=== PATIENT | female | born 1955 | race Caucasian/White ===

== ENCOUNTER → 2020-11-19 14:08 | Outpatient (CLI) | payer MEDICARE, OTHER, SELFPAY ==
[2020-11-17 11:22] VITALS: BMI 33.3
--- NOTE | 2020-11-19 14:11 | CT_ITS ---
STUDY: CT ABDOMEN AND PELVIS WITH CONTRAST REASON FOR EXAM: Female, 65 years old. Gross hematuria, history of glioblastoma with radiation, and carcinoid. RADIATION DOSAGE (If Supplied By Facility): CTDIvol = ( 18.92 ) mGy, DLP = ( 2019.77 ) mGycm TECHNIQUE: Transaxial images were obtained from the dome of the diaphragm to the symphysis pubis without oral contrast. Oral and amp; IV Redi-CAT and amp; 100mL Isovue-300 was administered. Sagittal and coronal images were reconstructed. Individualized dose optimization techniques were used for this CT. COMPARISON: None. FINDINGS: Lung bases show multiple suspicious noncalcified nodules in both lower lung benton that are concerning for metastasis. The visualized portions of the heart are within normal limits. There is decreased attenuation of the liver consistent with steatosis. Gallbladder is distended but there is no wall thickening, pericholecystic fluid or biliary dilatation. Normal spleen. Normal pancreas. Normal bilateral adrenal glands. No obstructive uropathy, there are bilateral parapelvic renal cysts. Normal visualized stomach. Normal small intestine. Retained stool noted in the colon. The appendix is visualized and appears normal. Appendix best seen on coronal recon images 65 through 75 Normal abdominal aorta. Normal inferior vena cava. No suspicious retroperitoneal abnormality is noted. There is a partially calcified soft tissue mass in the right mesentery measuring 2.7 x 2.7 cm. This could represent a desmoid tumor, could also be seen with carcinoid or reactive lymphadenopathy. Normal urinary bladder. Normal abdominal wall. There are diffuse degenerative changes of the visualized lumbar spine. CT/Abdomen/Pelvis WITH Contrast IMPRESSION: Multiple suspicious noncalcified nodules in both lower lung benton suggestive of metastasis. No obstructive uropathy, parapelvic renal cysts noted best on the delayed images. Fatty liver, no discrete lesion 2.7 cm partially calcified soft tissue mass in the right mesentery with some distortion of the mesenteric fat differentials described above. I suspect this may represent a carcinoid tumor. Retained stool in the colon No free intraperitoneal fluid, air, or suspicious adenopathy Degenerative bony changes Electronically Signed: Raffi Mendez MD at 14:55 EDT , Service support ,
== END ==
PROVIDERS: PCP Family Medicine; Referring Provider Internal Medicine Hematology & Oncology; Visit Provider Internal Medicine Hematology & Oncology
DX: R31.0 Gross hematuria (principal)
CPT/HCPCS: 74177; Q9967

== ENCOUNTER 2021-03-31 09:23 | Day surgery (SDC) | payer MEDICARE, OTHER, SELFPAY ==
[2021-03-31] VITALS (7 sets, daily range): BP systolic 113–132; BP diastolic 61–78; PULSE 56–73; RESP 16; TEMP 36–36.3; O2SAT 98–100; BMI 29.5
[2021-03-31] MEDS: Lactated Ringers 1,000 ML 100 ML IV (09:57)
--- NOTE | 2021-03-31 10:35 | HP.PCM_ITS ---
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 Is patient in pain?: No Allergies No Known Allergies Allergy (Verified 03/24/21 13:03) Medications Polyethylene Glycol 17 mg PO DAILY PRN 04/16/20 [History Confirmed 03/24/21] acetaminophen 325 mg PO Q4H PRN 04/16/20 [History Confirmed 03/24/21] amlodipine 10 mg PO DAILY 04/16/20 [History Confirmed 03/24/21] ergocalciferol (vitamin D2) 50,000 unit PO QWEEK 04/16/20 [History Confirmed 03/24/21] levetiracetam 500 mg PO BID 04/16/20 [History Confirmed 03/24/21] levothyroxine 250 mcg PO DAILY 04/16/20 [History Confirmed 03/24/21] lisinopril 20 mg PO DAILY 04/16/20 [History Confirmed 03/24/21] octreotide,microspheres 20 mg IM QMONTH 04/16/20 [History Confirmed 03/24/21] PFSH Medical History Basal cell carcinoma (BCC) Benign carcinoid tumor of colon Brain tumor Diverticular disease Dizzy spells Essential hypertension, benign excision anal papilla tag Hematuria Hypothyroidism Lung metastases Secondary lung cancer Thyroid cancer Thyroid cancer Thyroid cancer Surgical History H/O thyroidectomy History of resection of small bowel History of tonsillectomy History of uvulectomy Hx of excision of tumor of brain meninges S/P Mohs surgery for basal cell carcinoma S/P KEISHA-[id number] (total abdominal hysterectomy and bilateral salpingo-oophorectomy) Family History Father Lung cancer Sister Hypertension Aunt Breast cancer Grandmother Uterine cancer Social History housing: house Smoking Status: Never smoker second hand exposure: No details: socially substance use type: does not use seatbelt use: always do you feel safe at home: Yes HPI HPI HPI: CLINTON LONGO, is a 65 F who presents to the office today for port placement for 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 Patient also seen Dr. Lynn for carcinoid of the small bowel. Patient is having issues with IV access and would like a port placed. Patient's last treatment is scheduled for 04/09. ROS General General: Yes weight change and fatigue; No appetite, colon cancer, breast cancer or weakness HEENT HEENT: No difficulty swallowing, eye injury, eye surgery, swollen glands or hoarseness Endo Endocrine: Yes thyroid cancer; No thyroid disease, diabetes mellitus, Hair loss, heat intolerance or cold intolerance Skin Skin: No rash or changing moles Breast Breast: No left breast lump, right breast lump, nipple discharge, breast pain, abnormal mammogram, abnormal US or breast enlargement Musc Musculoskeletal: No back problems, arthritis, rheumatoid arthritis, gout or joint pain Cardio Cardiovascular: No murmur, pacemaker, heart disease, atrial fibrillation, high blood pressure, heart attack, heart stent, palpitations, shortness of breat with exertion or chest pain Psych Psychiatric: No depression, anxiety or hearing voices Resp Respiratory: No shortness of breath, No sleep apnea, No cough, No COPD, No asthma, No emphysema and No wheezing Gastro Gastrointestinal: No abdominal pain, No nausea or vomiting, No diarrhea, No constipation, No blood in stool, No acid reflux, No hemorrhoids, No ulcers, No gallbladder problem and No black,tarry stools Juan Hematologic: No blood thinners, No blood disorders, No bleeding, No anemia and No blood clots Neuro Neurologic: No system reviewed and no additional complaints, except as documented, No as per HPI, No abnormal gait, No abnormal hearing, No abnormal movements, No abnormal speech, No behavioral changes, No burning sensations, No confusion, No convulsions, No disequilibrium, No dizziness, No localized weakness, No frequent falls, No headache(s), No lack of coordination, No loss of vision, No memory loss, No numbness, No other visual disturbances, No radicular pain, No restless legs, No sensory deficit, No syncope, No tingling, No tremor(s), No weakness and No other Exam Const General: cooperative, healthy appearing, comfortable and no acute distress Neck Other: Previous cervical incision status post thyroidectomy, mobile subcutaneous nodule under incision about 1 cm in size otherwise neck supple Chest Other: Upper chest normal on inspection and palpation Resp Effort & Inspection: normal respiratory effort Cardio Rate: regular rate GI Inspection: non-distended Palpation: soft, no guarding and nontender Skin General: no rashes or lesions noted Neuro General: patient oriented x3 Psych Affect: normal affect COVID (Procedure Consent) Procedure Criteria Procedure Criteria: Yes Elective The surgeon/proceduralist and patient have discussed in detail the risk of exposure to and/or potential harm posed by the COVID-19 virus with having a surgery/procedure at this time versus the risk of delaying the surgery/procedure. It is not possible to know either the risk of delaying the surgery or procedure or chance of getting an infection with perfect accuracy, but a joint decision was made between the patient and the surgeon/proceduralist to proceed at this time with the scheduled surgery/procedure as indicated on the consent form. Assessment and Plan Assessment and Plan (1) Encounter for insertion of venous access port: Status: Acute (2) Grade 4 astrocytoma: Status: Chronic (3) Carcinoid tumor, small intestine, malignant: Status: Chronic Qualifiers: Carcinoid tumor small intestine location: unspecified location Qualified Code(s): C7A.019 - Malignant carcinoid tumor of the small intestine, unspecified portion Plan - Dr. Shanique Farris MD: I have discussed above with the patient- Port-a-Cath placement. Right possible left Patient has been counseled as to the risks/benefits of the procedure. I have explained the risks of the surgery, including but not limited to: infection, bleeding, injury to any blood vessels/nerves, injury to lungs (such as pneumothorax or hemothorax and need for chest tube), not having any access, nonfunctioning of port due to thrombosis, infection of port, etc. the patient understands and agrees to proceed. I have answered all the patient's questions to the patient?s satisfaction and the patient has no further questions. Shanique Farris M.D. Pager: [phone] [facility] [address] [place] [address], [facility], [address] [place] [address] Office: [phone] Coding Level of Care Code Off vis,new,level 3 Diagnoses Encounter for insertion of venous access port Z45.2 Grade 4 astrocytoma C71.9 Carcinoid tumor, small intestine, malignant C7A.019 Carcinoid tumor small intestine location: unspecified location 03/24/21 1323<Electronically signed by Shanique Farris MD>Date Shanique Farris MD
[2021-03-31] MEDS: Cefazolin 2 GM in 0.9% Normal Saline 100 ML IV (11:39)
--- NOTE | 2021-03-31 12:17 | PCM.OPRPT ---
Report of Operation Date of Procedure: 03/31/21 Pre-Operative Diagnosis: Z 45.2, grade 4 astrocytoma Post-Operative Diagnosis: Same Surgery/Procedure Performed:: 1. Placement of right IJ Port-A-Cath 2. Use of fluoroscopy 3. Use of ultrasound. Surgeon: Shanique Farris Type of Anesthesia: MAC/Supplemental Anesthesiologist: Juanito Jackson Special Medications: Ancef 2 g IV x1 Estimated Blood Loss (mL): <10 cc Description of Procedure: After informed consent was given, the patient was brought to the operating room and placed in the supine position. Appropriate time out protocol was followed. Patient was then given IV conscious sedation for anesthesia. The patient's right upper chest and neck were then prepped with a surgical skin preparation and sterile surgical drapes were placed. After proper landmarks were ascertained, the skin at the upper right chest area was then infiltrated with 1:1 mixture of 1% lidocaine with epinephrine and 0.5% marcaine. A needle trocar was then inserted into the right internal jugular vein with ultrasound guidance-multiple vessels were viewed with u/s and the right IJ was chosen-- and there was good aspiration of venous blood. A wire was then threaded into the needle trocar and this was visualized under fluoroscopy to ensure that the wire was in the superior vena cava. Once this was done, then the needle trocar was removed. A small skin deborah was made with an 11 blade knife at the wire entrance site. The dilator with the introducer sheath attached was then placed over the wire into the right internal jugular vein via the Seldinger technique and this was visualized under fluoroscopy. The dilator and sheath were in proper position as visualized by fluoroscopy. A subcutaneous pocket was then created caudad to the catheter insertion site. A transverse skin incision was made after the skin and subcutaneous tissues were infiltrated with local anesthetic. Blunt dissection was then used to create a space large enough for placement of the subcutaneous port. The catheter was then tunneled into the subcutaneous pocket. The wire and dilator were then removed. The catheter was then threaded into the introducer sheath and was positioned with its tip at the junction of the superior vena cava and the right atrium as visualized under fluoroscopy. The excess catheter was transected. The catheter was then attached to the subcutaneous port using manufacturers guidelines. The catheter was flushed with a heparin saline mixture prior to placement. Hemostasis was carefully controlled with electrocautery. The port was sutured to the subcutaneous fascia using 2-0 Vicryl suture at two sites. The port was then placed in the subcutaneous pocket. The incision were reapproximated with interrupted subdermal 3-0 vicryl sutures. The skin was reapproximated with 3-0 nylon suture in a interrupted fashion. Steristrips were used for reinforcement of the skin closure at IJ insertion site and a sterile opsite dressings were applied. The patient tolerated the procedure well. Implants Used: [employer] PowerPort isp M.R.I. 6Fr Lot [id number] Grafts/Implants Used: [employer] PowerPort isp M.R.I. 6Fr Lot [id number] Complications none
--- NOTE | 2021-03-31 12:19 | EX.PCM.DISCH ---
Discharge Instructions Procedure Port-A-Cath Diet Discharge Diet: Light diet - advance as tolerated Activity May shower in (days): 5 (Keep port site clean and dry x5 days. Neck incision okay to get wet after 1 day. Okay to lower shower and upper sponge bath. OR okay to taper off port site with a Ziploc bag to shower) Lifting Restrictions: No lifting > 15 pounds for 3 days with the arm on the side of the port Dressing / Incision Call your doctor if your incision/area has: Continuous Slow Oozing, Sudden Increased Bleeding, Increased Pain/ Swelling, Increased Redness, Foul Smelling Discharge and Swelling at the incision site Call your doctor if you observe: Fever of 101 or Higher Change Dressing in: 2 days Follow Up Care Please Follow Up With: Shanique Farris MD When: In 10 days for permanent suture removal?call office for appointment Test Results: Test results from this visit will be discussed in further detail at your follow-up appointment, if applicable. Discharge Plan Admission Attending Provider: Shanique Farris Primary Care Provider: Christine Concepcion Discharge Orders/Prescriptions Prescriptions: New oxycodone-acetaminophen [Endocet] 5-325 mg tablet 1 tab PO Q6H PRN (Reason: pain) 3 Days Qty: 5 RF: 0 Continued acetaminophen 325 MG tablet 325 mg PO Q4H PRN (Reason: Pain Score 1-3) RF: 0 amlodipine 10 MG tablet 10 mg PO DAILY RF: 0 ergocalciferol (vitamin D2) 50,000 UNIT capsule 50,000 unit PO QWEEK RF: 0 levetiracetam 500 MG tablet 500 mg PO BID RF: 0 levothyroxine 125 MCG tablet 250 mcg PO MOTUWETHFR RF: 0 lisinopril 10 MG tablet 20 mg PO DAILY RF: 0 octreotide,microspheres 20 MG kit 20 mg IM QMONTH RF: 0 Polyethylene Glycol 17 mg PO DAILY PRN (Reason: Constipation) RF: 0 levothyroxine 125 mcg Capsule 125 mcg PO SUSA RF: 0 Referrals / Follow Up: Christine Concepcion MD [Primary Care Provider] - Disposition Disposition (needs filled in before D/C Order can be placed): Home, Self Care
--- NOTE | 2021-03-31 12:30 | RAD_ITS ---
STUDY: X-RAY CHEST REASON FOR EXAM: Female, 65 years old. port -- pacu TECHNIQUE: Single AP portable view of the chest. COMPARISON: 10/12/2011 FINDINGS: Interval placement right internal jugular chest port with tip in the catheter overlying the junction of the right atrium and superior vena cava. No pneumothorax. The lungs are clear and expanded. There is no demonstrated pleural abnormality. Normal size heart. Normal mediastinum and debbie. Normal visualized pulmonary arteries. Normal visualized aortic arch and descending thoracic aorta. Normal visualized thoracic spine. Normal visualized ribs, clavicles, and shoulders. There is no demonstrated abnormality of the visualized soft tissue structures of the upper abdomen. RAD/CXR for Line Placement IMPRESSION: 1. Interval placement right internal jugular chest port with tip of the catheter overlying the junction of the right atrium and superior vena cava with no pneumothorax. 2. No active pulmonary disease. Electronically Signed: Richmond Fisher MD at 12:45 EDT Tel , Service support ,
== END 2021-03-31 13:48 | disposition home or self-care (01) ==
LOC: SDC 09:27 → AC 09:27
PROVIDERS: PCP Family Medicine; Referring Provider Surgery; Visit Provider Surgery
PROC: (CPT 36561; principal; 2021-03-31 11:15)
DX: C71.9 Malignant neoplasm of brain, unspecified (principal); C7A.019 Malignant carcinoid tumor of the small intestine, unspecified portion; Z45.2 Encounter for adjustment and management of vascular access device; I10 Essential (primary) hypertension; E03.9 Hypothyroidism, unspecified; Z79.899 Other long term (current) drug therapy
CPT/HCPCS: 00532; 36561; 71045; 77001; J7120; J2405

== ENCOUNTER 2021-09-25 08:09 | Outpatient (CLI) | payer MEDICARE, OTHER, SELFPAY ==
--- NOTE | 2021-09-25 08:11 | CT_ITS ---
STUDY: CT BRAIN WITH AND WITHOUT CONTRAST REASON FOR EXAM: Female, 66 years old. New headache, N/V in setting of known astrocytoma RADIATION DOSAGE (If Supplied By Facility): CTDIvol = ( 44.99 ) mGy, DLP = ( 1479.73 ) mGycm TECHNIQUE: Transaxial CT imaging of the brain was performed pre and post contrast administration. The examination was performed with intravenous administration of IV 50mL Isovue-370. Individualized dose optimization techniques were used for this CT. COMPARISON: None. FINDINGS: Normal soft tissue structures. The patient is status post left frontal craniotomy. Normal size ventricles and extra-axial spaces for the patient''s age. Normal white matter tracts of the cerebral hemispheres. There is a 1.1 cm x 0.5 cm densely calcified abnormality in the left frontal lobe. Adjacent to this, there is a 1.1 cm x 1.1 cm cystic nodule. The patient is known to have a history of astrocytoma. Normal basal ganglia and thalami. Normal brainstem. Normal cerebellum. There is no intracranial hemorrhage. There are no findings of an acute ischemic infarction. Normal visualized paranasal sinuses. CT/Brain/Head W/WO Contrast IMPRESSION: Focal dense calcification with cystic changes in the left frontal lobe in keeping with the patient''s history of astrocytoma. The patient is status post left frontal craniotomy. No enhancement is seen. Electronically Signed: Migel You MD at 9:13 EDT ,
[2021-09-25] MEDS: 0.9 % NaCl (Sterile) Posiflush 10 mL IV (08:27)
== END 2021-09-25 23:59 | disposition home or self-care (01) ==
LOC: CT 08:10
PROVIDERS: PCP Family Medicine; Referring Provider Nurse Practitioner Family; Visit Provider Nurse Practitioner Family
DX: C71.9 Malignant neoplasm of brain, unspecified (principal); R51.9 Headache, unspecified; R11.0 Nausea
CPT/HCPCS: 70470; Q9967; A4216

== ENCOUNTER 2023-02-17 09:01 | Observation (INO) | payer MEDICARE, OTHER, SELFPAY ==
[2023-02-17 09:02] VITALS: BP 105/69; PULSE 99; RESP 14; TEMP 36.4; O2SAT 100
--- NOTE | 2023-02-17 09:26 | MRI_ITS ---
STUDY: MRI BRAIN WITH AND WITHOUT CONTRAST REASON FOR EXAM: Female, 67 years old. aphasia, hx astrocytoma TECHNIQUE: Standardized multiplanar fat and water weighted pulse sequences were obtained. IV CLARISCAN 15 CC was administered for the contrast portion of the examination. COMPARISON: Head CT dated September 25, 2021. FINDINGS: Prior surgical resection with overlying) craniotomy defects in the superior aspect of the left frontal lobe, starting from the periventricular region and extending superiorly into the packer radiata. There is a peripherally enhancing intermediate signal nodule in the left periventricular white matter at the level of packer radiata measuring 1.44 x 0.78 cm, either representing residual tumor or recurrent neoplasm, see images 82 through 91/136 series 2 on the postcontrast images. No additional primary or metastatic lesions are seen in the bilateral cerebral hemispheres or in the posterior fossa there is no demonstrated meningeal or dural thickening or abnormal enhancement to suggest dural carcinomatosis. Post resective gliosis and volume loss is also present in superior aspect of the left frontal lobe from prior surgical intervention. An old lacunar infarct is present at the junction of the right caudate nucleus and lentiform nucleus superiorly. There is mild cerebral atrophy with widening of the extra-axial spaces and ventricular dilatation. There are a limited number of small white matter hyperintensities, distributed throughout the deep white matter tracts of the cerebral hemispheres, consistent with mild chronic white matter ischemic changes. There is no evidence for recent intracranial ischemia or other cause of cytotoxic edema on diffusion weighted imaging (DWI). Normal bilateral basal ganglia. Normal thalami. There is no extra-axial fluid accumulation. Normal flow voids within the major intracranial circulation suggesting patency by spin echo criteria. Normal venous enhancement. Normal sella turcica, pituitary gland, infundibular stalk, optic chiasm and hypothalamus. Normal tectal plate and pineal gland. Normal midbrain, rosemarie and medulla. Normal cerebellum. Normal basal cisterns. Normal bilateral temporal bones. Normal bilateral internal auditory canals. No demonstrated orbital abnormality, within the constraints of a routine brain study. Normal visualized paranasal sinuses. Normal visualized soft tissue structures. Normal visualized upper cervical spine. MRI/Brain W/WO Contrast IMPRESSION: 1. There is a peripherally enhancing intermediate signal nodule in the left periventricular white matter at the level of packer radiata measuring 1.44 x 0.78 cm, either representing residual tumor or recurrent neoplasm, see images 82 through 91/136 series 2 on the postcontrast images. 2. No additional primary or metastatic lesions are seen in the bilateral cerebral hemispheres or in the posterior fossa there is no demonstrated meningeal or dural thickening or abnormal enhancement to suggest dural carcinomatosis. Post resective gliosis and volume loss is also present in superior aspect of the left frontal lobe from prior surgical intervention. Electronically Signed: Moses Marshall MD at 15:09 EDT ,
--- NOTE | 2023-02-17 09:27 | EKG12_ITS ---
Test Reason : ALT LOC Blood Pressure : / mmHG Vent. Rate : 085 BPM Atrial Rate : 085 BPM P-R Int : 124 ms QRS Dur : 086 ms QT Int : 364 ms P-R-T Axes : 005 -12 011 degrees QTc Int : 433 ms Normal sinus rhythm Minimal voltage criteria for LVH, may be normal variant ( R in aVL ) Borderline ECG Confirmed by FANTASMA RAWLS ([id number]), map editor MAK TALAMANTES ([id number]) on 02/22/2023 8:37:10 AM Referred By: Confirmed By:FANTASMA RAWLS
--- NOTE | 2023-02-17 09:29 | EX.ED.DYSGE1 ---
HPI History of Present Illness Chief Complaint: Alt LOC Informant: patient, family and PCP (Rad-Onc) Narrative Narrative: Patient has been altered for the past 2 or 3 days, the main issue is speaking things that do not make any sense and contacts, but also having some periods of lethargy and decreased responsiveness. Patient denies any physical symptoms such as headache, chest pain, shortness of breath. 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 Patient lives at home alone, she is chronically nonambulatory, and gets around in her wheelchair. [facility] Medical History Autism Basal cell carcinoma (BCC) Benign carcinoid tumor of colon Brain tumor Cancer Diverticular disease Dizzy spells Encounter for chemotherapy management Essential hypertension, benign excision anal papilla tag Fatigue Headache Hematuria History of stress test Hoarseness Hypothyroidism Lung metastases Nausea Non-smoker Postoperative primary hypothyroidism Secondary lung cancer Seizures Thyroid cancer Thyroid cancer Thyroid cancer Wears glasses Home Medications amlodipine 10 mg tablet 10 mg PO DAILY 04/16/20 [History Last Taken 03/31/21] ergocalciferol (vitamin D2) 1,250 mcg (50,000 unit) capsule 50,000 unit PO QWEEK 04/16/20 [History Last Taken Unknown] levetiracetam 500 mg tablet 500 mg PO BID 04/16/20 [History Last Taken 03/31/21] octreotide,microspheres 20 mg intramuscular susp, extended release 20 mg IM QMONTH carcinoid tumor 04/16/20 [History Last Taken Unknown] lisinopril 40 mg tablet 40 mg PO DAILY 08/13/21 [History Last Taken Unknown] ondansetron 4 mg disintegrating tablet 4 mg PO Q8H PRN nausea and vomiting #30 tabs 09/24/21 [Rx Last Taken Unknown] levothyroxine 125 mcg tablet 125 mcg PO DAILY #90 tabs 11/05/21 [Rx Last Taken Unknown] aspirin 81 mg tablet,delayed release (Adult Low Dose Aspirin) 81 mg PO DAILY 02/25/22 [History Last Taken Unknown] atorvastatin 20 mg tablet (Lipitor) 20 mg PO DAILY 02/25/22 [History Last Taken Unknown] mirtazapine 15 mg tablet (Remeron) 15 mg PO QHS 06/17/22 [History Last Taken Unknown] morphine 15 mg tablet,extended release 15 mg PO Q12H 02/17/23 [History Last Taken Unknown] oxycodone 5 mg tablet 5 mg PO Q6H PRN pain 02/17/23 [History Last Taken Unknown] polyethylene glycol 3350 17 gram/dose oral powder 17 g PO DAILY PRN constipation 02/17/23 [History Last Taken Unknown] Allergy/AdvReac Type Severity Reaction Status Date / Time No Known Allergies Allergy Verified 02/17/23 09:07 Family History Father Lung cancer Sister Hypertension Aunt Breast cancer Grandmother Uterine cancer Surgical History H/O cataract removal with insertion of prosthetic lens H/O thyroidectomy History of resection of small bowel History of surgery on lower extremity History of tonsillectomy History of uvulectomy Hx of excision of tumor of brain meninges S/P Mohs surgery for basal cell carcinoma S/P [id number] (total abdominal hysterectomy and bilateral salpingo-oophorectomy) Social History housing: house Smoking Status: Never smoker second hand exposure: No details: socially substance use type: does not use seatbelt use: always do you feel safe at home: Yes ROS ROS ED Review of Systems ROS Unobtainable: due to mental status Constitutional Constitutional ED: Reports anorexia and weakness; Denies chills or fever(s) Eyes Eyes: Denies change in vision or diplopia ENT ENT ED: Denies sore throat Cardiovascular Cardiovascular: Denies chest pain or palpitations Respiratory/Chest Respiratory/Chest: Denies cough or dyspnea Gastrointestinal Gastrointestinal: Denies abdominal pain, diarrhea, nausea or vomiting Musculoskeletal Musculoskeletal: Denies back pain or neck pain Neurologic Neurologic: Reports as per HPI and abnormal speech; Denies headache(s), paresthesias or weakness EXAM Physical Exam Const Vital Signs: 02/17/23 09:02 02/17/23 10:56 02/17/23 13:45 Temperature 97.6 F L Temperature Source Temporal Pulse Rate 99 85 75 Respiratory Rate 14 14 18 Blood Pressure 105/69 125/65 H 102/60 Blood Pressure Mean 81 85 74 Pulse Ox 100 97 97 Oxygen Delivery Method Room Air Room Air Room Air Positive well nourished and well developed General Appearance ED: well developed and NAD HEENT Reports moist mucous membranes normocephalic and atraumatic Eyes PERRL and EOMs intact bilaterally Neck full ROM and supple Resp normal respiratory effort and clear to auscultation bilaterally Cardio regular rate and regular rhythm Rate: Negative for tachycardic GI non-tender and non-distended Auscultation: normoactive bowel sounds Palpation: soft Back/Spine no CVA tenderness General Back: other FROM Extremity normal to inspection General Extremety ED: Negative for edema, pulses abnormal or tenderness General Extremity: Negative for edema or pulses abnormal Neuro oriented x3, CN's II-XII intact bilaterally and no sensory deficits noted Neuro Narrative: Trouble following commands especially with moving eyes, but she can move her extremities to command without difficulty. NIHSS is 4 for abnormal month, age, speech. Sensorium / Orientation: awake and alert Motor Exam: strength 5/5 throughout Psych Psych Narrative: Flat affect Skin no rashes or lesions noted and no wounds NIHSS NIHSS Initial: 1a Level of Consciousness: 0 1b LOC Questions (Score 2 if aphasic/stupor): 2 1c LOC Commands (Only score 1st attempt): 0 2 Best Gaze (If aphasic, use reflexive mvmts.): 0 3 Visual: 0 4 Facial Palsy: 0 5 Motor Arm Right (UN = amputation/fusion): 0 5 Motor Arm Left: 0 6 Motor Leg Right: 0 6 Motor Leg Left: 0 7 Limb ataxia (Only + if out of proportion): 0 8 Sensory (Aphasia/stupor=0 or 1, coma=2): 0 9 Best Language: 2 10 Dysarthria (mute, coma=2, intubated=UN): 0 11 Extinction and Inattention (only scored if +): 0 Total Score: 4 MDM MDM MDM Narrative Medical decision making narrative: Labs show SULAIMAN and prerenal azotemia, she was given IV fluids here while we awaited MRI of the brain to be obtained and results, which were somewhat delayed due to needing to obtain other images series in order to compare for accurate interpretation. This was attempted, but no prior MRI of the brain was available in our windows server support technician, just a prior CT which I did a comparison with, which certainly is limited. I reviewed the images and the report of the MRI which I agree with. I discussed with her oncologist Dr. Spencer, who request that we try to get the last set of MR brain images from [facility] to be sent to our windows server support technician so that the radiologist can then make a direct comparison and comment on this. There does not appear to be any acute edema, mass effect, or other lesions now, and indeed the mass that is seen on the left frontal periventricular white matter is in similar placement to that on the CT last year. MRI already submitted for the images to be transmitted from [facility] and we are waiting for an addendum/comparison. I did discuss at length with the patient and her cousin in law who is here representing the medical POA who is not available right now, and they both confirm that the patient does not want to undergo any other procedures that would involve neurosurgery, even if indicated. Also, between her and her other family member, they both have ill spouses and her not able to be with the patient if she were to be at home so that somebody is there every day. They are concerned about her safety since she is confused, and for that reason I will discuss with hospitalist for admission. In asking the patient about her hydration status, she states it does make sense that she could be dehydrated since she has had very poor fluid intake lately. Lab Data Attestation: I reviewed the patient's lab results. Labs: Laboratory Results - last 24 hr 02/17/23 02/17/23 02/17/23 09:47 10:15 10:15 WBC Cancelled Corrected WBC Cancelled RBC Cancelled Hgb Cancelled Hct Cancelled MCV Cancelled MCH Cancelled MCHC Cancelled RDW Std Deviation Cancelled RDW Coeff of Tre Cancelled Plt Count Cancelled MPV Cancelled Immature Gran % (Auto) Cancelled Neut % (Auto) Cancelled Lymph % (Auto) Cancelled [place] % (Auto) Cancelled Eos % (Auto) Cancelled Baso % (Auto) Cancelled Absolute Neuts (auto) Cancelled Absolute Lymphs (auto) Cancelled Total Counted Cancelled Neutrophils % (Manual) Cancelled Band Neutrophils % Cancelled Lymphocytes % (Manual) Cancelled Monocytes % (Manual) Cancelled Eosinophils % (Manual) Cancelled Basophils % (Manual) Cancelled Metamyelocytes % Cancelled Myelocytes % Cancelled Promyelocytes % Cancelled Blast Cells % Cancelled Plasma Cell % (Manual) Cancelled Other Cells % Cancelled Nucleated RBC % Cancelled Nucleated RBCs/100 WBC Cancelled Differential Comment Cancelled Diff Path Review Cancelled Hypersegmented Neuts Cancelled Atypical Lymphocytes Cancelled Reactive Lymphocytes Cancelled Smudge Cells Cancelled Toxic Granulation Cancelled Toxic Vacuolation Cancelled Dohle Bodies Cancelled Evelyn Rods Cancelled Platelet Estimate Cancelled Plt Morphology Comment Cancelled RBC Morphology Cancelled Cancelled Polychromasia Cancelled Hypochromasia Cancelled Poikilocytosis Cancelled Basophilic Stippling Cancelled Anisocytosis Cancelled Microcytosis Cancelled Macrocytosis Cancelled Spherocytes Cancelled Sickle Cells Cancelled Target Cells Cancelled Tear Drop Cells Cancelled Ovalocytes Cancelled Stomatocytes Cancelled [place] Bodies Cancelled [place] Cells Cancelled Bite Cells Cancelled Crenated Cell Cancelled Acanthocytes (Spur) Cancelled Rouleaux Cancelled Schistocytes Cancelled Sodium 139 Potassium 4.1 Chloride 110 H Carbon Dioxide 24.0 Anion Gap 5 BUN 57 H Creatinine 2.18 H Estim Creat Clear Calc 21.03 Est GFR (MDRD) Af Amer 29 L Est GFR (MDRD) Non-Af 24 L BUN/Creatinine Ratio 26.1 H Glucose 118 H Calcium 9.5 Total Bilirubin 0.60 AST 33 ALT 17 Alkaline Phosphatase 97 Troponin I High Sens 9 Total Protein 6.9 Albumin 3.4 Globulin 3.5 Albumin/Globulin Ratio 1.0 Urine Color YELLOW Urine Clarity Sl. Cloudy Urine pH 5.0 Ur Specific [place] 1.025 Urine Protein 15 H Urine Glucose (UA) Normal Urine Ketones Negative Urine Occult Blood 10 H Urine Nitrite Negative Urine Bilirubin 3 H Urine Urobilinogen 1 H Ur Leukocyte Esterase 100 H Urine RBC 0-5 SEEN Urine WBC 0-5 SEEN Ur Squamous Epith Cells 5-10 SEEN Urine Bacteria RARE Urine Mucus RARE 02/17/23 02/17/23 02/17/23 10:50 10:50 12:00 WBC Cancelled 7.3 Corrected WBC Cancelled RBC Cancelled 3.68 L Hgb Cancelled 10.3 L Hct Cancelled 34.0 L MCV Cancelled 92.4 MCH Cancelled 28.0 MCHC Cancelled 30.3 L RDW Std Deviation Cancelled 50.1 H RDW Coeff of Tre Cancelled 15.0 H Plt Count Cancelled 133 L MPV Cancelled 13.8 H Immature Gran % (Auto) Cancelled 0.400 Neut % (Auto) Cancelled 75.0 H Lymph % (Auto) Cancelled 14.9 L [place] % (Auto) Cancelled 9.3 Eos % (Auto) Cancelled 0.0 Baso % (Auto) Cancelled 0.4 Absolute Neuts (auto) Cancelled 5.5 Absolute Lymphs (auto) Cancelled 1.09 Total Counted Cancelled Neutrophils % (Manual) Cancelled Band Neutrophils % Cancelled Lymphocytes % (Manual) Cancelled Monocytes % (Manual) Cancelled Eosinophils % (Manual) Cancelled Basophils % (Manual) Cancelled Metamyelocytes % Cancelled Myelocytes % Cancelled Promyelocytes % Cancelled Blast Cells % Cancelled Plasma Cell % (Manual) Cancelled Other Cells % Cancelled Nucleated RBC % Cancelled 0 Nucleated RBCs/100 WBC Cancelled Differential Comment Cancelled Diff Path Review Cancelled Hypersegmented Neuts Cancelled Atypical Lymphocytes Cancelled Reactive Lymphocytes Cancelled Smudge Cells Cancelled Toxic Granulation Cancelled Toxic Vacuolation Cancelled Dohle Bodies Cancelled Evelyn Rods Cancelled Platelet Estimate Cancelled Plt Morphology Comment Cancelled RBC Morphology Cancelled Cancelled Polychromasia Cancelled Hypochromasia Cancelled Poikilocytosis Cancelled Basophilic Stippling Cancelled Anisocytosis Cancelled Microcytosis Cancelled Macrocytosis Cancelled Spherocytes Cancelled Sickle Cells Cancelled Target Cells Cancelled Tear Drop Cells Cancelled Ovalocytes Cancelled Stomatocytes Cancelled [place] Bodies Cancelled [place] Cells Cancelled Bite Cells Cancelled Crenated Cell Cancelled Acanthocytes (Spur) Cancelled Rouleaux Cancelled Schistocytes Cancelled Sodium Potassium Chloride Carbon Dioxide Anion Gap BUN Creatinine Estim Creat Clear Calc Est GFR (MDRD) Af Amer Est GFR (MDRD) Non-Af BUN/Creatinine Ratio Glucose Calcium Total Bilirubin AST ALT Alkaline Phosphatase Troponin I High Sens Total Protein Albumin Globulin Albumin/Globulin Ratio Urine Color Urine Clarity Urine pH Ur Specific [place] Urine Protein Urine Glucose (UA) Urine Ketones Urine Occult Blood Urine Nitrite Urine Bilirubin Urine Urobilinogen Ur Leukocyte Esterase Urine RBC Urine WBC Ur Squamous Epith Cells Urine Bacteria Urine Mucus Radiography Diagnostic Testing: Clinical Impression(s) from Imaging Studies Brain MRI 02/17/23 09:26 IMPRESSION: 1. There is a peripherally enhancing intermediate signal nodule in the left periventricular white matter at the level of packer radiata measuring 1.44 x 0.78 cm, either representing residual tumor or recurrent neoplasm, see images 82 through 91/136 series 2 on the postcontrast images. 2. No additional primary or metastatic lesions are seen in the bilateral cerebral hemispheres or in the posterior fossa there is no demonstrated meningeal or dural thickening or abnormal enhancement to suggest dural carcinomatosis. Post resective gliosis and volume loss is also present in superior aspect of the left frontal lobe from prior surgical intervention. Electronically Signed: Moses Marshall MD at 15:09 EDT , Chest X-Ray 02/17/23 11:05 IMPRESSION: Degenerative changes, as described above. No demonstrated acute cardiopulmonary process. Electronically Signed: Moses Marshall MD at 11:48 EDT , Rhythm Strip Rhythm Strip: Sinus Rhythm Rate: 85 Ectopy: None EKG Initial EKG: Attestation: I personally reviewed and interpreted this EKG as follows: Interpretation: Sinus Rhythm and No Acute Injury Pattern Comments: nml EKG Management Discussion w/another healthcare provider: Hospitalist and [facility] Clerk (Dr. Spencer) Discharge Plan Dx/Rx/DC Orders Clinical Impression: Acute encephalopathy, Grade 4 astrocytoma, SULAIMAN (acute kidney injury), Acute dehydration Disposition Disposition: Acute Care Hospital [facility] Stroke Documentation Questions Stroke Team Activated: No (due to timing) Was Patient considered for Endovascular Intervention?: No-CTA not indicated IV Thrombolytic Administered: No
--- NOTE | 2023-02-17 09:32 | NURSING ---
NO OLD EKGS
[2023-02-17 10:04] LABS: Color, Urine YELLOW (Yellow); Glucose, Dipstick Normal (Normal); Ketone-Dipstick Negative (Negative); Leukocyte Esterase-Dipstick 100 /ul (Negative); Nitrite-Dipstick Negative (Negative); Occult Blood-Urine 10 /ul (Negative); Protein-Dipstick 15 mg/dl (Negative); Specific Gravity, Urine 1.025 (1.002-1.030); Urine Bilirubin Dipstick 3 mg/dL (Negative); Urine Clarity Sl. Cloudy (Clear); Urine Urobilinogen 1 mg/dl (Normal)
[2023-02-17 10:14] VITALS: BMI 32.4
[2023-02-17] MEDS: 0.9% Normal Saline 1,000 ML 150 ML IV ×2 (10:21→17:00)
[2023-02-17] MEDS: Morphine 4 MG/ML Syringe IV ×2 (10:32→16:31)
[2023-02-17] MEDS: Ondansetron 4 MG/2 ML Vial IV (10:32)
[2023-02-17 10:42] LABS: AST(SGOT) 33 U/L (15-37); Alanine Aminotransfer ALT/SGPT 17 U/L (13-56); Albumin, Serum 3.4 g/dL (3.2-5.0); Alkaline Phosphatase 97 U/L (45-117); Anion Gap 5 (5-15); BUN 57 mg/dL (7-18); BUN/Creat Ratio 26.1 RATIO (10-20); Calcium,Total 9.5 mg/dL (8.5-10.1); Chloride 110 mmol/L (98-107); Creatinine, Serum 2.18 mg/dL (0.55-1.02); EST Glomerular Filtration Rate 24 mL/min (>60); Est Glom Filt Rate - Afr Amer 29 mL/min (>60); Estimated Creatinine Clearance 21.03 ml/min; Globulin 3.5 g/dL (2.2-4.2); Glucose 118 mg/dL (74-106); Potassium 4.1 mmol/L (3.5-5.1); Protein, Total 6.9 g/dL (6.4-8.2); Sodium Level 139 mmol/L (136-145); Troponin-I HS 9 pg/mL (3.0-54.0)
[2023-02-17 10:44] LABS: Bacteria RARE /hpf (None Seen); Red Blood Cells-Urine 0-5 SEEN /hpf (0-5); Squamous Epithelial Cells - UA 5-10 SEEN /hpf (5-10); White Blood Cells 0-5 SEEN /hpf (0-5)
[2023-02-17 10:45] LABS: Mucous, Urine RARE /hpf (<or=2+)
[2023-02-17 10:56] VITALS: BP 125/65; PULSE 85; RESP 14; O2SAT 97
--- NOTE | 2023-02-17 11:05 | RAD_ITS ---
STUDY: X-RAY CHEST REASON FOR EXAM: Female, 67 years old. altered LOC TECHNIQUE: Single AP portable view of the chest. COMPARISON: None. FINDINGS: Right chest port with the catheter terminating in the distal SVC. The lungs are clear and expanded. There is no demonstrated pleural abnormality. Normal size heart. Normal mediastinum and debbie. Normal visualized pulmonary arteries. Normal visualized aortic arch and descending thoracic aorta. There are diffuse degenerative changes of the visualized thoracic spine. There is degenerative osteoarthritis of the bilateral shoulders. There is no demonstrated abnormality of the visualized soft tissue structures of the upper abdomen. RAD/Chest 1 View (Portable) IMPRESSION: Degenerative changes, as described above. No demonstrated acute cardiopulmonary process. Electronically Signed: Moses Marshall MD at 11:48 EDT ,
[2023-02-17 12:08] LABS: Absolute Lymphocyte Count 1.09 X10^3/uL (0.83-4.51); Absolute Neutrophil Count 5.5 X10^3/uL (2.0-7.7); Basophil# 0.03 X10^3/uL; Basophil% 0.4 % (0-1); Hemoglobin 10.3 g/dL (12.0-15.0); Lymphocyte # 1.09 X10^3/ul (0.83-4.51); Lymphocyte % 14.9 % (19-41); Mean Corp Hgb Conc 30.3 g/dL (32-36); Mean Corpuscular Volume 92.4 fL (81-99); Mean Platelet Vol. 13.8 fl (6.2-12.0); Monocyte# 0.68 X10^3/uL; Monocyte% 9.3 % (0-10); NRBC Flagged by Analyzer 0 % (0-5); Neutrophil # 5.49 X10^3/uL (2.7-7.7); Platelet Count 133 K/mm3 (150-450); RBC Distribution Width SD 50.1 fl (35.1-43.9); Red Blood Count 3.68 M/mm3 (4.2-5.4); White Blood Count 7.3 K/mm3 (4.4-11.0)
[2023-02-17 13:45] VITALS: BP 102/60; PULSE 75; RESP 18; O2SAT 97
--- NOTE | 2023-02-17 15:58 | NURSING ---
MED SURG OBS SARAH ENCEPHALOPATHY, SULAIMAN, ASTROCYTOMA, CONFUSED
[2023-02-17 16:02] VITALS: BP 108/56; PULSE 79; RESP 16; TEMP 36.5; O2SAT 97
--- NOTE | 2023-02-17 16:12 | PCM.HP.STD ---
HPI - General General Date of Admission: 02/17/23 Date of Service: 02/17/23 Chief Complaint: debility. confusion HPI Narrative CLINTON LONGO, is a 67 F who presents with confusion from home. Noted by family to be confused and confabulating. Pt endorses that she is confused, but cannot elaborate. Patient sent to the ED and found to have SULAIMAN and received IVF. Med Onc advised an MRI of the brain which showed a 1.44x0.78cm mass at left periventricular white matter with no mention of vasogenic edema. (MRI from [facility] has not been compared at this time to see if there is any change.) Pt lives at home and is non-weight bearing on LLE due to pathologic fracture in left hip. Family is concerned that she cannot take care of herself. [facility] Medical History Autism Basal cell carcinoma (BCC) Benign carcinoid tumor of colon Brain tumor Cancer Diverticular disease Dizzy spells Encounter for chemotherapy management Essential hypertension, benign excision anal papilla tag Fatigue Headache Hematuria History of stress test Hoarseness Hypothyroidism Lung metastases Nausea Non-smoker Postoperative primary hypothyroidism Secondary lung cancer Seizures Thyroid cancer Thyroid cancer Thyroid cancer Wears glasses Home Medications amlodipine 10 mg tablet 10 mg PO DAILY 04/16/20 [History Last Taken 03/31/21] ergocalciferol (vitamin D2) 1,250 mcg (50,000 unit) capsule 50,000 unit PO QWEEK 04/16/20 [History Last Taken Unknown] levetiracetam 500 mg tablet 500 mg PO BID 04/16/20 [History Last Taken 03/31/21] octreotide,microspheres 20 mg intramuscular susp, extended release 20 mg IM QMONTH carcinoid tumor 04/16/20 [History Last Taken Unknown] lisinopril 40 mg tablet 40 mg PO DAILY 08/13/21 [History Last Taken Unknown] ondansetron 4 mg disintegrating tablet 4 mg PO Q8H PRN nausea and vomiting #30 tabs 09/24/21 [Rx Last Taken Unknown] levothyroxine 125 mcg tablet 125 mcg PO DAILY #90 tabs 11/05/21 [Rx Last Taken Unknown] aspirin 81 mg tablet,delayed release (Adult Low Dose Aspirin) 81 mg PO DAILY 02/25/22 [History Last Taken Unknown] atorvastatin 20 mg tablet (Lipitor) 20 mg PO DAILY 02/25/22 [History Last Taken Unknown] mirtazapine 15 mg tablet (Remeron) 15 mg PO QHS 06/17/22 [History Last Taken Unknown] morphine 15 mg tablet,extended release 15 mg PO Q12H 02/17/23 [History Last Taken Unknown] oxycodone 5 mg tablet 5 mg PO Q6H PRN pain 02/17/23 [History Last Taken Unknown] polyethylene glycol 3350 17 gram/dose oral powder 17 g PO DAILY PRN constipation 02/17/23 [History Last Taken Unknown] Allergy/AdvReac Type Severity Reaction Status Date / Time No Known Allergies Allergy Verified 02/17/23 09:07 Family History Father Lung cancer Sister Hypertension Aunt Breast cancer Grandmother Uterine cancer Surgical History H/O cataract removal with insertion of prosthetic lens H/O thyroidectomy History of resection of small bowel History of surgery on lower extremity History of tonsillectomy History of uvulectomy Hx of excision of tumor of brain meninges S/P Mohs surgery for basal cell carcinoma S/P [id number] (total abdominal hysterectomy and bilateral salpingo-oophorectomy) Social History housing: house Smoking Status: Never smoker second hand exposure: No details: socially substance use type: does not use seatbelt use: always do you feel safe at home: Yes ROS ROS Narrative All review of systems were negative except as mentioned above in the history of present illness and the other review of systems. Vital Signs Vital Signs Vital Signs: 02/17/23 09:02 02/17/23 10:56 02/17/23 13:45 Temperature 36.4 C L Temperature Source Temporal Pulse Rate 99 85 75 Respiratory Rate 14 14 18 Blood Pressure 105/69 125/65 H 102/60 Blood Pressure Mean 81 85 74 Pulse Ox 100 97 97 Oxygen Delivery Method Room Air Room Air Room Air 02/17/23 16:02 Temperature 36.5 C L Temperature Source Oral Pulse Rate 79 Respiratory Rate 16 Blood Pressure 108/56 L Blood Pressure Mean 73 Pulse Ox 97 Oxygen Delivery Method Room Air Weight Weight: 85.8 kg Body Mass Index (BMI) 32.4 Physical Exam Const alert and no apparent distress Constitutional Narrative: anxious. non-toxic. General Appearance: cooperative HEENT normocephalic, head/scalp atraumatic, hearing grossly normal bilaterally and moist oral mucous membranes Resp normal respiratory effort, no retractions, no use of accessory muscles and clear to auscultation bilaterally Cardio regular rate, regular rhythm, S1 normal heart sound and S2 normal heart sound GI normal to inspection, nondistended, normoactive bowel sounds, soft to palpation, non-tender and non-distended Extremity normal to inspection and no clubbing, cyanosis or edema Neuro moves all extremities and no focal motor deficits Sensorium / Orientation: awake and alert Results Lab / Micro Data Attestation: I reviewed the patient's lab results. 02/17/23 12:00 02/17/23 10:15 Labs: Laboratory Results - last 24 hr 02/17/23 09:47: Urine Color YELLOW, Urine Clarity Sl. Cloudy, Urine pH 5.0, Ur Specific [place] 1.025, Urine Protein 15 H, Urine Glucose (UA) Normal, Urine Ketones Negative, Urine Occult Blood 10 H, Urine Nitrite Negative, Urine Bilirubin 3 H, Urine Urobilinogen 1 H, Ur Leukocyte Esterase 100 H, Urine RBC 0-5 SEEN, Urine WBC 0-5 SEEN, Ur Squamous Epith Cells 5-10 SEEN, Urine Bacteria RARE, Urine Mucus RARE 02/17/23 10:15: WBC Cancelled, Corrected WBC Cancelled, RBC Cancelled, Hgb Cancelled, Hct Cancelled, MCV Cancelled, MCH Cancelled, MCHC Cancelled, RDW Std Deviation Cancelled, RDW Coeff of Tre Cancelled, Plt Count Cancelled, MPV Cancelled, Immature Gran % (Auto) Cancelled, Neut % (Auto) Cancelled, Lymph % (Auto) Cancelled, Chilton % (Auto) Cancelled, Eos % (Auto) Cancelled, Baso % (Auto) Cancelled, Absolute Neuts (auto) Cancelled, Absolute Lymphs (auto) Cancelled, Total Counted Cancelled, Neutrophils % (Manual) Cancelled, Band Neutrophils % Cancelled, Lymphocytes % (Manual) Cancelled, Monocytes % (Manual) Cancelled, Eosinophils % (Manual) Cancelled, Basophils % (Manual) Cancelled, Metamyelocytes % Cancelled, Myelocytes % Cancelled, Promyelocytes % Cancelled, Blast Cells % Cancelled, Plasma Cell % (Manual) Cancelled, Other Cells % Cancelled, Nucleated RBC % Cancelled, Nucleated RBCs/100 WBC Cancelled, Differential Comment Cancelled, Diff Path Review Cancelled, Hypersegmented Neuts Cancelled, Atypical Lymphocytes Cancelled, Reactive Lymphocytes Cancelled, Smudge Cells Cancelled, Toxic Granulation Cancelled, Toxic Vacuolation Cancelled, Dohle Bodies Cancelled, Evelyn Rods Cancelled, Platelet Estimate Cancelled, Plt Morphology Comment Cancelled, RBC Morphology Cancelled 02/17/23 10:15: RBC Morphology Cancelled, Polychromasia Cancelled, Hypochromasia Cancelled, Poikilocytosis Cancelled, Basophilic Stippling Cancelled, Anisocytosis Cancelled, Microcytosis Cancelled, Macrocytosis Cancelled, Spherocytes Cancelled, Sickle Cells Cancelled, Target Cells Cancelled, Tear Drop Cells Cancelled, Ovalocytes Cancelled, Stomatocytes Cancelled, Joseph-[place]crac[place] Bodies Cancelled, Washta Cells Cancelled, Bite Cells Cancelled, Crenated Cell Cancelled, Acanthocytes (Spur) Cancelled, Rouleaux Cancelled, Schistocytes Cancelled, Sodium 139, Potassium 4.1, Chloride 110 H, Carbon Dioxide 24.0, Anion Gap 5, BUN 57 H, Creatinine 2.18 H, Estim Creat Clear Calc 21.03, Est GFR (MDRD) Af Amer 29 L, Est GFR (MDRD) Non-Af 24 L, BUN/Creatinine Ratio 26.1 H, Glucose 118 H, Calcium 9.5, Total Bilirubin 0.60, AST 33, ALT 17, Alkaline Phosphatase 97, Troponin I High Sens 9, Total Protein 6.9, Albumin 3.4, Globulin 3.5, Albumin/Globulin Ratio 1.0 02/17/23 10:50: WBC Cancelled, Corrected WBC Cancelled, RBC Cancelled, Hgb Cancelled, Hct Cancelled, MCV Cancelled, MCH Cancelled, MCHC Cancelled, RDW Std Deviation Cancelled, RDW Coeff of Tre Cancelled, Plt Count Cancelled, MPV Cancelled, Immature Gran % (Auto) Cancelled, Neut % (Auto) Cancelled, Lymph % (Auto) Cancelled, Chilton % (Auto) Cancelled, Eos % (Auto) Cancelled, Baso % (Auto) Cancelled, Absolute Neuts (auto) Cancelled, Absolute Lymphs (auto) Cancelled, Total Counted Cancelled, Neutrophils % (Manual) Cancelled, Band Neutrophils % Cancelled, Lymphocytes % (Manual) Cancelled, Monocytes % (Manual) Cancelled, Eosinophils % (Manual) Cancelled, Basophils % (Manual) Cancelled, Metamyelocytes % Cancelled, Myelocytes % Cancelled, Promyelocytes % Cancelled, Blast Cells % Cancelled, Plasma Cell % (Manual) Cancelled, Other Cells % Cancelled, Nucleated RBC % Cancelled, Nucleated RBCs/100 WBC Cancelled, Differential Comment Cancelled, Diff Path Review Cancelled, Hypersegmented Neuts Cancelled, Atypical Lymphocytes Cancelled, Reactive Lymphocytes Cancelled, Smudge Cells Cancelled, Toxic Granulation Cancelled, Toxic Vacuolation Cancelled, Dohle Bodies Cancelled, Evelyn Rods Cancelled, Platelet Estimate Cancelled, Plt Morphology Comment Cancelled, RBC Morphology Cancelled 02/17/23 10:50: RBC Morphology Cancelled, Polychromasia Cancelled, Hypochromasia Cancelled, Poikilocytosis Cancelled, Basophilic Stippling Cancelled, Anisocytosis Cancelled, Microcytosis Cancelled, Macrocytosis Cancelled, Spherocytes Cancelled, Sickle Cells Cancelled, Target Cells Cancelled, Tear Drop Cells Cancelled, Ovalocytes Cancelled, Stomatocytes Cancelled, Joseph-Ocracoke Bodies Cancelled, Tiffanie Cells Cancelled, Bite Cells Cancelled, Crenated Cell Cancelled, Acanthocytes (Spur) Cancelled, Rouleaux Cancelled, Schistocytes Cancelled 02/17/23 12:00: WBC 7.3, RBC 3.68 L, Hgb 10.3 L, Hct 34.0 L, MCV 92.4, MCH 28.0, MCHC 30.3 L, RDW Std Deviation 50.1 H, RDW Coeff of Tre 15.0 H, Plt Count 133 L, MPV 13.8 H, Immature Gran % (Auto) 0.400, Neut % (Auto) 75.0 H, Lymph % (Auto) 14.9 L, Chilton % (Auto) 9.3, Eos % (Auto) 0.0, Baso % (Auto) 0.4, Absolute Neuts (auto) 5.5, Absolute Lymphs (auto) 1.09, Nucleated RBC % 0 Rhythm Strip Rhythm Strip: Sinus Rhythm Rate: 85 Ectopy: None Radiology Impression Brain MRI 02/17/23 09:26 IMPRESSION: 1. There is a peripherally enhancing intermediate signal nodule in the left periventricular white matter at the level of packer radiata measuring 1.44 x 0.78 cm, either representing residual tumor or recurrent neoplasm, see images 82 through 91/136 series 2 on the postcontrast images. 2. No additional primary or metastatic lesions are seen in the bilateral cerebral hemispheres or in the posterior fossa there is no demonstrated meningeal or dural thickening or abnormal enhancement to suggest dural carcinomatosis. Post resective gliosis and volume loss is also present in superior aspect of the left frontal lobe from prior surgical intervention. Electronically Signed: Moses Marshall MD at 15:09 EDT , Chest X-Ray 02/17/23 11:05 IMPRESSION: Degenerative changes, as described above. No demonstrated acute cardiopulmonary process. Electronically Signed: Moses Marshall MD at 11:48 EDT , Assessment & Plan Assessment/Plan (1) SULAIMAN (acute kidney injury): PLAN: likely prerenal IVF hold lisinopril for now. (2) Acute encephalopathy: PLAN: suspect primarily toxic from MS and oxycodone hold MS for now. Monitor (3) Debility: PLAN: Patient lives by herself. PT OT evaluate and treat Patient may require halfway facility upon discharge. 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 Comparison to prior MRI pending. s/p subtotal resection in 2019. Family expressed no desire for neurosurgery, if it would be an option. Continue with the levetiracetam. 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 Continue XRT per rad onc. h/o small bowel carcinoid tumor s/p resection. continue octeotide. Hypertension: Continue with amlodipine. Lisinopril held on account of SULAIMAN. VTE prphylaxis: LMWH. Advance care planning: Spent additional 20 minutes discussing with the patient about goals of care. Laid out the patient's current situation and address quality of life with her. She made no formal decision 1 way or another. She did express that she did not want CPR in the event of cardiac arrest. Therefore CODE STATUS to be DNR Comfort Care arrest. Charges/Coding Visit Charges Inpatient E&M: 24060 Init Hosp L3 Procedures Hospitalists Procedures: 21477 Advncd Care Plan 30 Min
[2023-02-17 17:04] VITALS: BMI 31.1
[2023-02-17 17:16] VITALS: BP 133/57; PULSE 78; RESP 16; TEMP 36.9; O2SAT 98
[2023-02-17 17:24] VITALS: BMI 31.1
[2023-02-17] MEDS: Lidocaine 5% Patch 1 PATCH TOPICAL (17:38)
[2023-02-17 20:05] VITALS: BP 121/69; PULSE 75; RESP 16; TEMP 36.4; O2SAT 98
[2023-02-17] MEDS: levETIRAcetam 500 MG Tablet PO (20:12)
[2023-02-17] MEDS: Acetaminophen 500 MG Tablet 1000 MG PO (20:12)
[2023-02-18] MEDS: 0.9% Normal Saline 1,000 ML 150 ML IV ×2 (00:17→06:59)
[2023-02-18 02:35] VITALS: BP 111/59; PULSE 61; RESP 15; TEMP 36.7; O2SAT 100
[2023-02-18 05:37] LABS: Anion Gap 3 (5-15); BUN 46 mg/dL (7-18); BUN/Creat Ratio 34.3 RATIO (10-20); Calcium,Total 8.6 mg/dL (8.5-10.1); Chloride 118 mmol/L (98-107); Creatinine, Serum 1.34 mg/dL (0.55-1.02); EST Glomerular Filtration Rate 42 mL/min (>60); Est Glom Filt Rate - Afr Amer 50 mL/min (>60); Estimated Creatinine Clearance 34.22 ml/min; Glucose 90 mg/dL (74-106); Potassium 3.9 mmol/L (3.5-5.1); Sodium Level 146 mmol/L (136-145)
[2023-02-18] MEDS: Levothyroxine 125 MCG Tablet PO (05:38)
[2023-02-18] MEDS: Acetaminophen 500 MG Tablet 1000 MG PO ×3 (05:38→22:29)
[2023-02-18 09:05] VITALS: BP 122/67; PULSE 69; RESP 16; TEMP 36.4; O2SAT 100
[2023-02-18] MEDS: amLODIPine 10 MG Tablet PO (09:55)
[2023-02-18] MEDS: Aspirin E.C. 81 MG Tablet PO (09:55)
[2023-02-18] MEDS: Atorvastatin Calcium 20 MG Tablet PO (09:56)
[2023-02-18] MEDS: levETIRAcetam 500 MG Tablet PO ×2 (10:00→22:29)
[2023-02-18] MEDS: Enoxaparin 40 MG/0.4 ML Syringe SC (10:00)
[2023-02-18] MEDS: oxyCODONE 5 MG Tablet PO (10:03)
[2023-02-18 12:15] VITALS: BP 115/64; PULSE 64; RESP 16; TEMP 36.6; O2SAT 98
--- NOTE | 2023-02-18 12:20 | CASEMGMT ---
Addendum entered by Gabriela Woodall 02/18/23 16:11: CHARLIE OCASIO placed call to [facility] and spoke w/Vee. Vee verifies pt is active w/[facility]. She was made aware pt has been admitted to [facility] and that pt will most likely will go to a SNF @ discharge. Original Note: RN?CM?REFUGE WORKER?CM?to room to meet with patient for initial transition planning/care coordination?assessment.?RN?CM?introduced self and role at [facility].? Pt voices understanding and consents to?assessment?at this time.? Pt resting in bed in no distress at this time.? Pt is A/O at this time and able to answer all questions, although her response was a little delayed for some of the questions. Care providers, pharmacy, and demographics verified/updated at this time. PCP: Christine Concepcion Specialists: Dr Spencer-oncology, Dr Coates-radiation onc, Dr Mariscal-endocrinology Preferred Pharmacy: [facility] Insurance: [facility], MCR Supplement Prescription Benefit:?Yes Living Will/HPOA:?Has both LW and HCPOA, who is her brother, Darryn LNOK: Brother/POA, Darryn. Friend, Nalini Living Arrangements: Lives alone in one-story home w/ramp entrance. Independent w/ADL's and IADL's @ baseline. Pt states she manages her own medication. Transportation:?Pt states she drives DME: States has the following DME:?shower chair, walker, W/C, medical alert ?Pt states no need for further DME at this time.? HHC/SNF: Was just @ [facility] in [place] and states she is active w/ [facility]. She states has SN, therapy, and an aide. She states she has a Knitting Machine Mechanic, Jose. CHARLIE OCASIO where Jose was through--[facility], [facility], or another agency. She states she thinks he is through [facility]. Discussed discharge planning w/pt. She states she thinks she will need to go to a SNF @ d/c, but she is not sure yet. She states does not want to go back to [facility]. She thinks she may want to go to [place], but would like a SNF list to review. MS3 SHEY and AMARJIT both made aware. She is aware PT/OT evals pending and they will make recommendations and SHEY or AMARJIT will f/u with her after evals are completed. She voices appreciation. PLAN:??TBD. PT/OT evals pending. Gorge BSN?RN?CM
--- NOTE | 2023-02-18 14:18 | PN.HOSP_ITS ---
Reason for Visit Reason for Visit: Diagnoses Encephalopathy, unspecified (02/17/23) Acute kidney failure, unspecified (02/17/23) Other malaise (02/17/23) Subjective Subjective Patient seen at bedside this morning. She was resting comfortably in bed, in no acute distress. Her speech is somewhat slowed but she was answering all questions appropriately. Patient admits that her functional status at baseline has deteriorated fairly significantly over the past few weeks to months. She lives alone and has not been able to do much at all for herself at home. Today, patient denies any acute pain or discomfort. She does feel somewhat fatigued and feels quite weak. She denies any fevers or chills. She does not have much appetite at all and notes that she has not been eating much at home lately. No other acute concerns this morning. Objective Data Objective Data Vital Signs: Vital Signs Temp Pulse Resp BP Pulse Ox O2 Del Method 97.8 F 64 16 115/64 98 Room Air 02/18/23 12:15 02/18/23 12:15 02/18/23 12:15 02/18/23 12:15 02/18/23 12:15 02/18/23 12:15 Oxygen Delivery Method Room Air Weight: 82.418 kg Body Mass Index (BMI) 31.1 Intake & Output: Intake and Output for Last 24 Hours 02/16/23 02/17/23 02/18/23 23:59 23:59 23:59 Intake Total 2096. 1637.5 / 1637.5 Balance 2096. 1637.5 / 1637.5 Lab / Micro Data Attestation: I reviewed the patient's lab results. 02/17/23 12:00 02/18/23 04:45 Labs: Laboratory Results - last 24 hr 02/18/23 04:45: Sodium 146 H, Potassium 3.9, Chloride 118 H, Carbon Dioxide 25.0, Anion Gap 3 L, BUN 46 H, Creatinine 1.34 H, Estim Creat Clear Calc 34.22, Est GFR (MDRD) Af Amer 50 L, Est GFR (MDRD) Non-Af 42 L, BUN/Creatinine Ratio 34.3 H, Glucose 90, Calcium 8.6 Radiography Diagnostic Testing: Radiology Impression Brain MRI 02/17/23 09:26 IMPRESSION: 1. There is a peripherally enhancing intermediate signal nodule in the left periventricular white matter at the level of packer radiata measuring 1.44 x 0.78 cm, either representing residual tumor or recurrent neoplasm, see images 82 through 91/136 series 2 on the postcontrast images. 2. No additional primary or metastatic lesions are seen in the bilateral cerebral hemispheres or in the posterior fossa there is no demonstrated meningeal or dural thickening or abnormal enhancement to suggest dural carcinomatosis. Post resective gliosis and volume loss is also present in superior aspect of the left frontal lobe from prior surgical intervention. Electronically Signed: Moses Marshall MD at 15:09 EDT , ADDENDUM: 02/18/23 1022 IMPRESSION: undefined Rhythm Strip Rhythm Strip: Sinus Rhythm Rate: 85 Ectopy: None Physical Exam Const alert and oriented x3 Constitutional Narrative: Pleasant elderly female, appears fatigued, no acute distress, mildly slowed speech but otherwise conversing normally and answering questions appropriately. General Appearance: cooperative and comfortable HEENT normocephalic, head/scalp atraumatic, hearing grossly normal bilaterally, nasal mucous membranes and turbinates normal and moist oral mucous membranes Eyes PERRL, EOMs intact bilaterally and conjunctivae normal Neck full ROM, no lymphadenopathy and supple Lymph Lymphatic: no lymphadenopathy noted Chest inspection of chest normal Resp normal respiratory effort, normal air movement, no use of accessory muscles and clear to auscultation bilaterally Cardio regular rate, regular rhythm, no murmurs and peripheral pulses 2+ throughout GI normal to inspection, nondistended, normoactive bowel sounds, soft to palpation, non-tender and non-distended Back/Spine normal ROM Extremity normal to inspection, full ROM and no pedal edema Skin no rashes or lesions noted Psych mental status grossly normal Assessment & Plan Assessment/Plan (1) Debility: PLAN: Plan Patient is a 67-year-old female with history significant for 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 1. Generalized weakness Difficult ascertain how acute her weakness is at this point. Certainly appears that there is a chronic component to this. May be secondary to recent cancer treatments versus worsening functional status at baseline generally speaking. Labs on admission showed an SULAIMAN that has improved with fluids as noted below, were otherwise benign. Brain MRI on admission is unchanged from previous as noted below. -PT/OT/case management following. Suspect patient may need assisted facility on discharge. Will monitor. 2. Glioblastoma Initially diagnosed in November 2018. Underwent surgical debulking at that time, followed by radiation concurrent with temozolomide (December ?February 2019) followed by consolidation temozolomide (March?June 2019). Re-presented in July 2019 with locally recurrent disease and underwent a second resection at that time. She then underwent dose dense temozolomide August?October 2019 but had disease progression on MRI. Starting in October 2019, she has been on bevacizumab with serial brain imaging showing initial decrease in size in 2019 than stable disease on continued treatment. Follows with Dr. Spencer with oncology. Last office visit was 01/27/2023. Noted that most recent imaging and follow-up at [facility] was in August 2022. Patient had MRI brain done on admission that in comparison to MRI brain images from August show no changes. -No concern for worsening at this time. Continue bevacizumab and outpatient follow-up as scheduled. 3. Stage IV follicular thyroid cancer Initially diagnosed back in 2009. Follows outpatient with Dr. Spencer as noted above. Patient had thyroidectomy followed by BELLA done in 2009. In November 2022 she presented with an impending pathologic fracture of the left hip and underwent surgical fixation, with biopsy confirmed metastatic thyroid cancer to the bone. Now following with Dr. Coates with radiation oncology. Appears that she has completed 10 out of 10 doses of radiation to this point, but is somewhat difficult to tell from the note. Per Dr. Coates, she has tolerated the treatment well overall. -PT/OT following as above. Outpatient follow-up as previously scheduled. 4. SULAIMAN, improving -Very likely prerenal SULAIMAN in setting of poor p.o. intake at home. Creatinine 2.18 on admission, improved to 1.2 on 02/18 after IV fluid administration. We will continue maintenance IV fluids for now as patient's p.o. intake is still poor. Monitor BMP daily. 5. Hypertension ? Continue home amlodipine. 6. Hypothyroidism ? Continue home levothyroxine. DVT prophylaxis: Lovenox CODE STATUS: DNR CCA, okay to intubate Expected disposition: SNF versus home with home health care, 2 to 3 days Total clinical time spent by myself addressing the patient's medical issues, reviewing all the data, and collaborating with patient's care team: 35 minutes. Charges/Coding Visit Charges Inpatient E&M: 92248 Subs Hosp L2
--- NOTE | 2023-02-18 14:41 | CHAPLAIN ---
Type of Pastoral Visit _x__ Initial Visit ___ Follow-up Visit ___ On-call Visit ___ General Patient Visit ___ Spiritual Assessment ___ Family Conference ___ Bereavement ___ Rapid Response ___ Code Blue ___ Other (describe below) Pastoral Care Referral From _x__ Patient ___ Family ___ Nurse ___ Physician ___ Special Education Bus Driver ___ Real Estate Coordinator ___ Other (describe below) Sacrament/Intervention _x__ Active listening ___ Anointing ___ Faith ___ Bereavement ___ Communion ___ Arlene exploration ___ ___ Life review _x__ Prayer ___ Reconciliation ___ Sacrament of Sick _x__ Supportive presence ___ Wedding ___ Other (describe below) Pastoral Comments patient is pleasant and is given time to express herself; pt acknowledges that she is not sure why she was admitted; pt could not state where her family members are except that :a brother left for a cruise; pt does welcome the visit and a prayer; pt says that she is fine to just rest and wait; pt does not indicate further worries or concerns
[2023-02-18 15:07] VITALS: BP 127/68; PULSE 74; RESP 16; TEMP 36.6; O2SAT 98
--- NOTE | 2023-02-18 16:02 | CASEMGMT ---
A list of SNF providers including quality and resource use data and consistent with the patient?s preferred geographic region, medical needs, and insurance network were printed and provided from the [employer] Guide Cecy Prescott, Discharge Planning Asst.
[2023-02-18] MEDS: 0.9% Normal Saline 1,000 ML 75 ML IV (22:09)
[2023-02-18 22:11] VITALS: O2SAT 98
[2023-02-18 22:21] VITALS: BP 140/67; PULSE 64; RESP 18; TEMP 36.7; O2SAT 100
[2023-02-18] MEDS: Mirtazapine 15 MG Tablet PO (22:29)
[2023-02-19 04:21] VITALS: BP 134/70; PULSE 65; RESP 18; TEMP 36.8; O2SAT 98
[2023-02-19] MEDS: Levothyroxine 125 MCG Tablet PO (05:17)
[2023-02-19] MEDS: Acetaminophen 500 MG Tablet 1000 MG PO ×3 (05:17→21:44)
[2023-02-19 08:33] VITALS: PULSE 60
[2023-02-19 08:44] VITALS: BP 138/67; PULSE 67; RESP 16; TEMP 36.6; O2SAT 97
[2023-02-19] MEDS: 0.9% Normal Saline 1,000 ML 75 ML IV (08:47)
[2023-02-19] MEDS: Enoxaparin 40 MG/0.4 ML Syringe SC (08:48)
[2023-02-19] MEDS: levETIRAcetam 500 MG Tablet PO ×2 (08:48→21:40)
[2023-02-19] MEDS: Aspirin E.C. 81 MG Tablet PO (08:48)
[2023-02-19] MEDS: Atorvastatin Calcium 20 MG Tablet PO (08:49)
[2023-02-19] MEDS: amLODIPine 10 MG Tablet PO (08:50)
[2023-02-19 08:55] LABS: Anion Gap 1 (5-15); BUN 34 mg/dL (7-18); Calcium,Total 8.7 mg/dL (8.5-10.1); Chloride 121 mmol/L (98-107); EST Glomerular Filtration Rate 58 mL/min (>60); Est Glom Filt Rate - Afr Amer 71 mL/min (>60); Estimated Creatinine Clearance 45.85 ml/min; Glucose 86 mg/dL (74-106); Potassium 4.1 mmol/L (3.5-5.1); Sodium Level 148 mmol/L (136-145)
--- NOTE | 2023-02-19 09:10 | PN.HOSP_ITS ---
Reason for Visit Reason for Visit: Diagnoses Encephalopathy, unspecified (02/17/23) Acute kidney failure, unspecified (02/17/23) Other malaise (02/17/23) Subjective Subjective No events overnight. Objective Data Objective Data Vital Signs: Vital Signs Temp Pulse Resp BP Pulse Ox O2 Del Method 36.6 C 67 16 138/67 H 97 Room Air 02/19/23 08:44 02/19/23 08:44 02/19/23 08:44 02/19/23 08:44 02/19/23 08:44 02/19/23 08:44 Oxygen Delivery Method Room Air Weight: 82.418 kg Body Mass Index (BMI) 31.1 Intake & Output: Intake and Output for Last 24 Hours 02/17/23 02/18/23 02/19/23 23:59 23:59 23:59 Intake Total 1996.2096.5 2500.0 / 2580.0 877.5 / 877.5 Output Total 500 / 500 Balance 1996.2096. 2500.0 / 2230.0 377.5 / 377.5 Lab / Micro Data 02/17/23 12:00 02/19/23 07:51 Labs: Laboratory Results - last 24 hr 02/19/23 07:51: Sodium 148 H, Potassium 4.1, Chloride 121 H, Carbon Dioxide 26.0, Anion Gap 1 L, BUN 34 H, Creatinine 1.00, Estim Creat Clear Calc 45.85, Est GFR (MDRD) Af Amer 71, Est GFR (MDRD) Non-Af 58 L, BUN/Creatinine Ratio 34.0 H, Glucose 86, Calcium 8.7 Radiography Diagnostic Testing: Radiology Impression Brain MRI 02/17/23 09:26 IMPRESSION: 1. There is a peripherally enhancing intermediate signal nodule in the left periventricular white matter at the level of packer radiata measuring 1.44 x 0.78 cm, either representing residual tumor or recurrent neoplasm, see images 82 through 91/136 series 2 on the postcontrast images. 2. No additional primary or metastatic lesions are seen in the bilateral cerebral hemispheres or in the posterior fossa there is no demonstrated meningeal or dural thickening or abnormal enhancement to suggest dural carcinomatosis. Post resective gliosis and volume loss is also present in superior aspect of the left frontal lobe from prior surgical intervention. Electronically Signed: Moses Marshall MD at 15:09 EDT Reading Location ID and State: [facility] / [place] , Service support , ADDENDUM: 02/18/23 1022 IMPRESSION: undefined Rhythm Strip Rhythm Strip: Sinus Rhythm Rate: 85 Ectopy: None Physical Exam Const alert and no apparent distress HEENT head/scalp atraumatic Resp normal respiratory effort, no retractions, no use of accessory muscles and clear to auscultation bilaterally Cardio regular rate, regular rhythm, S1 normal heart sound and S2 normal heart sound GI normal to inspection, nondistended, normoactive bowel sounds, soft to palpation, non-tender and non-distended Assessment & Plan Assessment/Plan (1) SULAIMAN (acute kidney injury): PLAN: resolved likely prerenal IVF hold lisinopril for now. HLIV as sodium is climbing upwards. (2) Acute encephalopathy: PLAN: suspect primarily toxic from MS and oxycodone hold MS for now. Monitor (3) Debility: PLAN: Patient lives by herself. PT OT evaluate and treat Patient may require penitentiary facility upon discharge. 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 Comparison to prior MRI showed no change. s/p subtotal resection in 2019. Family expressed no desire for neurosurgery, if it would be an option. Continue with the levetiracetam. 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 Continue XRT per rad onc. * h/o small bowel carcinoid tumor s/p resection. continue octeotide. * Hypertension: Continue with amlodipine. Lisinopril held on account of SULAIMAN. DVT prophylaxis: Lovenox CODE STATUS: DNR CCA, okay to intubate Expected disposition: SNF versus home with home health care, 2 to 3 days Charges/Coding Visit Charges Inpatient E&M: 27687 Subs Hosp L2
--- NOTE | 2023-02-19 13:49 | CASEMGMT ---
Social Work SW met w/pt in room in regard to discharge plan. Pt may be agreeable to SNF, but does not want to go back to [facility]. She states left there a couple of weeks ago. She was there for 2 1/2 months. SW explained the jail Medicare benefit to pt, that it will picker packer on whatever day she left off, and that she does not get her full benefit back until she is out of the hospital and jail for 60 days. Pt states understanding. Pt does have the jail list, and would like to stay somewhere in [place]. SW reviewed the list w/pt. She is not sure where she would like a referral sent, asked if she can think about it. SW explained that yes, she can think about it. SW asked her to pick out a couple of options, and SW will follow up w/her Tuesday, and send the referrals. Pt states understanding. Plan: SNF, facility TBD, SW to follow up on Tuesday. ANDREINA Haile
[2023-02-19 13:59] VITALS: BP 117/55; PULSE 65; RESP 16; TEMP 36.6; O2SAT 99
[2023-02-19] MEDS: Mirtazapine 15 MG Tablet PO (21:40)
[2023-02-19] MEDS: 0.9 % NaCl (Sterile) Posiflush 10 mL IV (21:42)
[2023-02-19 21:45] VITALS: BP 151/73; PULSE 79; RESP 18; TEMP 36.8; O2SAT 100
[2023-02-19 21:46] VITALS: O2SAT 100
[2023-02-20 02:44] VITALS: BP 126/68; PULSE 66; RESP 18; TEMP 36.9; O2SAT 98
[2023-02-20] MEDS: Levothyroxine 125 MCG Tablet PO (06:07)
[2023-02-20] MEDS: Acetaminophen 500 MG Tablet 1000 MG PO ×3 (06:07→21:34)
--- NOTE | 2023-02-20 08:40 | PCM.PN.HOSP ---
Reason for Visit Reason for Visit: Diagnoses Encephalopathy, unspecified (02/17/23) Acute kidney failure, unspecified (02/17/23) Other malaise (02/17/23) Subjective Subjective No events overnight. Objective Data Objective Data Vital Signs: Vital Signs Temp Pulse Resp BP Pulse Ox O2 Del Method 36.9 C 66 18 126/68 H 98 Room Air 02/20/23 02:44 02/20/23 02:44 02/20/23 02:44 02/20/23 02:44 02/20/23 02:44 02/20/23 02:44 Oxygen Delivery Method Room Air Weight: 82.418 kg Body Mass Index (BMI) 31.1 Intake & Output: Intake and Output for Last 24 Hours 02/18/23 02/19/23 02/20/23 23:59 23:59 23:59 Intake Total 2500.0 / 2580.0 1392.50 / 1392.50 60 / 60 Output Total 1600 / 1600 Balance 2500.0 / 2230.0 -207.50 / -207.50 60 / 60 Lab / Micro Data 02/17/23 12:00 02/19/23 07:51 Labs: Laboratory Results - last 24 hr 02/19/23 07:51: Sodium 148 H, Potassium 4.1, Chloride 121 H, Carbon Dioxide 26.0, Anion Gap 1 L, BUN 34 H, Creatinine 1.00, Estim Creat Clear Calc 45.85, Est GFR (MDRD) Af Amer 71, Est GFR (MDRD) Non-Af 58 L, BUN/Creatinine Ratio 34.0 H, Glucose 86, Calcium 8.7 Rhythm Strip Rhythm Strip: Sinus Rhythm Rate: 85 Ectopy: None Physical Exam Const alert and no apparent distress Resp normal respiratory effort, no retractions, no use of accessory muscles and clear to auscultation bilaterally Cardio regular rate, regular rhythm, S1 normal heart sound and S2 normal heart sound GI normal to inspection, nondistended, normoactive bowel sounds and soft to palpation Assessment & Plan Assessment/Plan (1) SULAIMAN (acute kidney injury): PLAN: resolved w IVF likely prerenal hold lisinopril for now. (2) Acute encephalopathy: PLAN: resolved suspect primarily toxic from MS and oxycodone hold MS for now. Monitor (3) Debility: PLAN: Patient lives by herself. PT OT evaluate and treat Patient may require intermediate facility upon discharge. 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 Comparison to prior MRI showed no change. s/p subtotal resection in 2019. Family expressed no desire for neurosurgery, if it would be an option. Continue with the levetiracetam. 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 Continue XRT per rad onc. h/o small bowel carcinoid tumor s/p resection. continue octeotide. Hypertension: Continue with amlodipine. Lisinopril held on account of SULAIMAN. DVT prophylaxis: Lovenox CODE STATUS: DNR CCA, okay to intubate Expected disposition: SNF pending decision on facility. Charges/Coding Visit Charges Inpatient E&M: 53791 Subs Hosp L2
[2023-02-20] MEDS: amLODIPine 10 MG Tablet PO (10:49)
[2023-02-20] MEDS: Enoxaparin 40 MG/0.4 ML Syringe SC (10:49)
[2023-02-20] MEDS: levETIRAcetam 500 MG Tablet PO ×2 (10:50→21:34)
[2023-02-20] MEDS: Atorvastatin Calcium 20 MG Tablet PO (10:50)
[2023-02-20] MEDS: Aspirin E.C. 81 MG Tablet PO (10:50)
[2023-02-20] MEDS: Menthol/Lanolin/Calamine/Znox 113 GM Tube 1 APPLIC TOPICAL ×2 (10:51→21:36)
[2023-02-20 10:52] VITALS: BP 126/59; PULSE 67; RESP 18; TEMP 36.8; O2SAT 96
[2023-02-20] MEDS: Polyethylene Glycol 3350 17 GM PACKET PO (15:27)
[2023-02-20] MEDS: 0.9 % NaCl (Sterile) Posiflush 10 mL IV ×2 (15:27→21:34)
[2023-02-20 15:28] VITALS: BP 130/63; PULSE 66; RESP 17; TEMP 37; O2SAT 97
[2023-02-20 20:18] VITALS: BP 123/63; PULSE 64; RESP 20; TEMP 37.1; O2SAT 98
[2023-02-20] MEDS: Mirtazapine 15 MG Tablet PO (21:34)
[2023-02-20 22:07] VITALS: BP 146/77; PULSE 94; RESP 18; TEMP 37.2; O2SAT 97
[2023-02-21 04:00] VITALS: BP 116/54; PULSE 55; RESP 16; TEMP 37.1; O2SAT 95
[2023-02-21] MEDS: Acetaminophen 500 MG Tablet 1000 MG PO ×3 (05:33→20:32)
[2023-02-21] MEDS: Levothyroxine 125 MCG Tablet PO (05:34)
[2023-02-21 07:40] VITALS: BP 121/63; PULSE 59; RESP 18; TEMP 36.8; O2SAT 96
[2023-02-21] MEDS: Menthol/Lanolin/Calamine/Znox 113 GM Tube 1 APPLIC TOPICAL ×2 (09:52→20:31)
[2023-02-21] MEDS: amLODIPine 10 MG Tablet PO (09:52)
[2023-02-21] MEDS: Enoxaparin 40 MG/0.4 ML Syringe SC (09:53)
[2023-02-21] MEDS: levETIRAcetam 500 MG Tablet PO ×2 (09:53→20:33)
[2023-02-21] MEDS: Atorvastatin Calcium 20 MG Tablet PO (09:53)
[2023-02-21] MEDS: Aspirin E.C. 81 MG Tablet PO (09:59)
[2023-02-21 10:01] VITALS: BP 113/58; PULSE 65
[2023-02-21 14:38] VITALS: BP 123/62; PULSE 63; RESP 17; TEMP 37.7; O2SAT 97
--- NOTE | 2023-02-21 14:57 | PN_ITS ---
Subjective Subjective Patient seen and examined. She had no complaints. She had radiation today. Review of systems is otherwise negative. She has a mild fever with temp of 99.9F. Objective Data Objective Data Vital Signs: Vital Signs Temp Pulse Resp BP Pulse Ox O2 Del Method 99.9 F H 63 17 123/62 H 97 Room Air 02/21/23 14:38 02/21/23 14:38 02/21/23 14:38 02/21/23 14:38 02/21/23 14:38 02/21/23 14:38 Oxygen Delivery Method Room Air Weight: 181 lb 11.209 oz Body Mass Index (BMI) 31.1 Intake & Output: Intake and Output for Last 24 Hours 02/19/23 02/20/23 02/21/23 23:59 23:59 23:59 Intake Total 1392.50 / 1392.50 300 / 300 60 / 60 Output Total 1600 / 1600 400 / 800 650 / 650 Balance -207.50 / -207.50 -100 / -500 -590 / -590 Lab / Micro Data 02/17/23 12:00 02/19/23 07:51 Rhythm Strip Rhythm Strip: Sinus Rhythm Rate: 85 Ectopy: None Physical Exam Const alert, oriented x3 and no apparent distress HEENT normocephalic and head/scalp atraumatic Neck no lymphadenopathy and supple Lymph Lymphatic: no lymphadenopathy noted and no lymphedema noted Resp normal respiratory effort, normal air movement and clear to auscultation bilaterally Cardio regular rate, regular rhythm, S1 normal heart sound, S2 normal heart sound and no murmurs GI normal to inspection, nondistended, normoactive bowel sounds, soft to palpation, non-tender and non-distended Extremity normal capillary refill, no clubbing, cyanosis or edema and no calf tenderness Skin General Skin Exam: no breakdown Neuro CN's II-XII intact bilaterally, no focal motor deficits, no sensory deficits noted and deep tendon reflexes 2+ bilaterally Motor Exam: strength 5/5 throughout Psych thought process normal, cooperative and affect normal Appearance: appropriate Assessment & Plan Assessment/Plan (1) Acute dehydration: (2) SULAIMAN (acute kidney injury): (3) Debility: (4) Acute encephalopathy: PLAN: Plan #Acute encephalopathy: resolved. Was thought to be due to opiates. 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 For precautions. Awaiting placement. #Astrocytoma of the brain: MRI showed a left periventricular mass without va sogenic edema. Status post subtotal resection in 2019. Family did not want neuro surgery involvement. On Keppra. #Hypernatremia: Sodium is 148. Creatinine is down to 1. Placed on D5 water and monitor. 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 * Originally diagnosed in 2009 and had thyroidectomy followed by radioiodine treatment. 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 Lisinopril on hold. DVT prophylaxis; lovenox Disposition; awaiting placement Charges/Coding Visit Charges Inpatient E&M: 30685 Subs Hosp L2
--- NOTE | 2023-02-21 18:25 | CASEMGMT ---
Social Work MedSurg 3 Reason for intervention: Discharge planning and follow-up on [facility] discussion. Met with patient in room, introducing to self and social work role. Followed up with patient regarding fci list that has been provided earlier during this admission. Patient reports had wanted to be able to stay at home, but now believes it might be better to go to a alf facility. Patient reports believe also, that family would feel better if patient was being watched over and cared for. Patient processed that this is a difficult decision, and shared some changes in her life including the loss of her dog puppy about a year ago. Much supportive listening, encouragement and reflection provided to patient this date. Allowed patient time to express emotions. Patient did cry intermittently. Patient reports to have 2 more radiation treatments, on 02/22/2023 and 02/23/2023. Patient concerned as wants to ensure that she can get these treatments, and reports belief that is to be done with radiation after this. Reviewed list of nursing facilities. Patient adamant that does not want to return to [facility]. Patient wants to stay as close to [place] is possible. Choices identified from list include: [facility] as first choice. And then [facility] in [place] as alternatives. 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 Patient unable to recall the exact date that she got out of critical care. Plan: intermediate facility actively being worked on. -ANDREINA Rutherford, EXECUTIVE ASSOCIATE *This note was generated with [employer] dictation software. It may contain incorrect words, spelling, and punctuation that were not noted in review of the chart prior to signing*
--- NOTE | 2023-02-21 18:30 | CASEMGMT ---
Addendum entered and electronically signed by Neyda Addison 02/24/23 14:18: 8.24. - Brother remains in [place] and unable to contact for forms. Patient's cousin does not have the forms. -cathy Original Note: Advance Directive Validation Met with patient in room to evaluate advance directives. Patient reports has completed these forms but does not have them with her. Patient reports her brother Refugio Meade is the power of research attorney for healthcare, but Refugio is currently in [place] and unable to be contacted to get the directives. Patient reports to have a cousin Wilma. Patient reports we will talk to Wilma as to whether Wilma has a copy of the forms and if so have been brought in. Educated patient that when advanced directives are completed, it is important for the hospital and healthcare providers to have a copy of this in case of future or emergent needs. -Neyda Addison, OSWALDS, VALVE TECHNICIAN *This note was generated with [employer] dictation software. It may contain incorrect words, spelling, and punctuation that were not noted in review of the chart prior to signing*
[2023-02-21 20:29] VITALS: BP 139/63; PULSE 62; RESP 18; TEMP 36.8; O2SAT 99
[2023-02-21] MEDS: Mirtazapine 15 MG Tablet PO (20:32)
[2023-02-21] MEDS: Ibuprofen 600 MG Tablet PO (20:33)
[2023-02-22 00:46] VITALS: BP 122/59; PULSE 58; RESP 18; TEMP 36.7; O2SAT 97
[2023-02-22 05:22] VITALS: BP 135/63; PULSE 58; RESP 18; TEMP 36.5; O2SAT 100
[2023-02-22] MEDS: Levothyroxine 125 MCG Tablet PO (05:26)
[2023-02-22] MEDS: Acetaminophen 500 MG Tablet 1000 MG PO ×3 (05:26→23:07)
[2023-02-22 06:10] LABS: Absolute Lymphocyte Count 1.65 X10^3/uL (0.83-4.51); Absolute Neutrophil Count 3.7 X10^3/uL (2.0-7.7); Basophil# 0.02 X10^3/uL; Basophil% 0.3 % (0-1); Hemoglobin 10.7 g/dL (12.0-15.0); Lymphocyte # 1.65 X10^3/ul (0.83-4.51); Lymphocyte % 27.5 % (19-41); Mean Corp Hgb Conc 30.6 g/dL (32-36); Mean Corpuscular Volume 91.6 fL (81-99); Monocyte# 0.65 X10^3/uL; Monocyte% 10.8 % (0-10); NRBC Flagged by Analyzer 0 % (0-5); Neutrophil # 3.67 X10^3/uL (2.7-7.7); Neutrophil % 61.2 % (47-70); Platelet Count 113 K/mm3 (150-450); RBC Distribution Width CV 14.6 % (11.6-14.6); RBC Distribution Width SD 49.2 fl (35.1-43.9); Red Blood Count 3.82 M/mm3 (4.2-5.4)
[2023-02-22 06:49] LABS: Anion Gap 5 (5-15); BUN 24 mg/dL (7-18); BUN/Creat Ratio 25.8 RATIO (10-20); Calcium,Total 8.5 mg/dL (8.5-10.1); Chloride 110 mmol/L (98-107); Creatinine, Serum 0.93 mg/dL (0.55-1.02); EST Glomerular Filtration Rate 63 mL/min (>60); Est Glom Filt Rate - Afr Amer 77 mL/min (>60); Glucose 110 mg/dL (74-106); Potassium 3.1 mmol/L (3.5-5.1); Sodium Level 142 mmol/L (136-145)
[2023-02-22 08:25] VITALS: BP 152/68; PULSE 60; RESP 16; TEMP 36.6; O2SAT 98
[2023-02-22] MEDS: Potassium Chloride Oral Tablet 20 MEQ 40 MEQ PO (08:39)
--- NOTE | 2023-02-22 08:56 | CASEMGMT ---
Discharge Planning Referral sent to [facility] via [facility]. Cecy Prescott, Discharge Planning Asst.
--- NOTE | 2023-02-22 10:14 | CASEMGMT ---
Discharge Planning [facility] declined d/t not available beds. Referral sent to [place] via [facility]. SW updated. Cecy Prescott, Discharge Planning Asst.
[2023-02-22] MEDS: levETIRAcetam 500 MG Tablet PO ×2 (10:22→23:07)
[2023-02-22] MEDS: Atorvastatin Calcium 20 MG Tablet PO (10:22)
[2023-02-22] MEDS: amLODIPine 10 MG Tablet PO (10:22)
[2023-02-22] MEDS: Aspirin E.C. 81 MG Tablet PO (10:22)
[2023-02-22] MEDS: Enoxaparin 40 MG/0.4 ML Syringe SC (10:23)
[2023-02-22] MEDS: Menthol/Lanolin/Calamine/Znox 113 GM Tube 1 APPLIC TOPICAL ×2 (10:25→23:07)
--- NOTE | 2023-02-22 11:06 | CASEMGMT ---
Discharge Planning Referral sent to [facility] via [facility]. Cecy Prescott, Discharge Planning Asst.
--- NOTE | 2023-02-22 12:05 | PN_ITS ---
Subjective Subjective Patient seen and examined. She had no active complaints and had an uneventful night. Review of symptoms otherwise negative. She has remained hemodynamically stable. She is due for radiation today. Objective Data Objective Data Vital Signs: Vital Signs Temp Pulse Resp BP Pulse Ox O2 Del Method 97.8 F 60 16 152/68 H 98 Room Air 02/22/23 08:25 02/22/23 08:25 02/22/23 08:25 02/22/23 08:25 02/22/23 08:25 02/22/23 08:25 Oxygen Delivery Method Room Air Weight: 181 lb 11.209 oz Body Mass Index (BMI) 31.1 Intake & Output: Intake and Output for Last 24 Hours 02/20/23 02/21/23 02/22/23 23:59 23:59 23:59 Intake Total 300 / 300 60 / 160 / Output Total 400 / 800 950 / 950 225 / 225 Balance -100 / -500 -890 / -790 1773.33 / 1773.33 Lab / Micro Data 02/22/23 05:55 02/22/23 05:55 Labs: Laboratory Results - last 24 hr 02/22/23 05:55: WBC 6.0, RBC 3.82 L, Hgb 10.7 L, Hct 35.0 L, MCV 91.6, MCH 28.0, MCHC 30.6 L, RDW Std Deviation 49.2 H, RDW Coeff of Tre 14.6, Plt Count 113 L, MPV 13.0 H, Immature Gran % (Auto) 0.200, Neut % (Auto) 61.2, Lymph % (Auto) 27.5, Johnson % (Auto) 10.8 H, Eos % (Auto) 0.0, Baso % (Auto) 0.3, Absolute Neuts (auto) 3.7, Absolute Lymphs (auto) 1.65, Nucleated RBC % 0, Sodium 142, Potassium 3.1 L, Chloride 110 H, Carbon Dioxide 27.0, Anion Gap 5, BUN 24 H, Creatinine 0.93, Estim Creat Clear Calc 49.30, Est GFR (MDRD) Af Amer 77, Est GFR (MDRD) Non-Af 63, BUN/Creatinine Ratio 25.8 H, Glucose 110 H, Calcium 8.5 Rhythm Strip Rhythm Strip: Sinus Rhythm Rate: 85 Ectopy: None Physical Exam Const alert, oriented x3 and no apparent distress General Appearance: cooperative and comfortable HEENT normocephalic, head/scalp atraumatic, hearing grossly normal bilaterally, nasal mucous membranes and turbinates normal and moist oral mucous membranes Eyes PERRL, EOMs intact bilaterally and conjunctivae normal Neck full ROM, no lymphadenopathy and supple Lymph Lymphatic: no lymphadenopathy noted and no lymphedema noted Chest inspection of chest normal Resp normal respiratory effort, normal air movement, no retractions, no use of accessory muscles and clear to auscultation bilaterally Cardio regular rate, regular rhythm, S1 normal heart sound, S2 normal heart sound, no murmurs and peripheral pulses 2+ throughout GI normal to inspection, nondistended, normoactive bowel sounds, soft to palpation, non-tender and non-distended Back/Spine normal ROM Extremity normal to inspection, full ROM, normal capillary refill, no clubbing, cyanosis or edema, no calf tenderness and no pedal edema Skin no rashes or lesions noted General Skin Exam: no breakdown Neuro CN's II-XII intact bilaterally, moves all extremities, no focal motor deficits, no sensory deficits noted and deep tendon reflexes 2+ bilaterally Sensorium / Orientation: awake and alert Motor Exam: strength 5/5 throughout Psych mental status grossly normal, thought process normal, cooperative and affect normal Appearance: appropriate Assessment & Plan Assessment/Plan (1) Acute dehydration: (2) SULAIMAN (acute kidney injury): (3) Debility: (4) Acute encephalopathy: PLAN: Plan #Acute encephalopathy: resolved. Was thought to be due to opiates. 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 For precautions. Awaiting placement. 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 * Status post subtotal resection in 2019. Family did not want neuro surgery involvement. * On Keppra. * Undergoing radiation. * Had radiation yesterday; for radiation today. #Hypernatremia: Resolved with administration of D5 water. Sodium is 142. #Hypokalemia: Potassium is 3.1. Replace and trend. 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 * Originally diagnosed in 2009 and had thyroidectomy followed by radioiodine treatment. * Undergoing radiation. For radiation today. 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 Lisinopril on hold. Will resume lisinopril as SULAIMAN has resolved DVT prophylaxis; lovenox Disposition; awaiting placement Charges/Coding Visit Charges Inpatient E&M: 06440 Subs Hosp L2
[2023-02-22] MEDS: Lisinopril 40 MG Tablet PO (12:31)
--- NOTE | 2023-02-22 13:33 | CASEMGMT ---
Met with patient to complete HERNANDEZ form. HERNANDEZ form explained to patient who voiced understanding and signed form. Original form placed in pt?s chart and copy provided to patient. Cecy Prescott, Discharge Planning Asst.
[2023-02-22 13:50] VITALS: BP 126/58; PULSE 63; RESP 16; TEMP 36.8; O2SAT 96
--- NOTE | 2023-02-22 17:30 | CASEMGMT ---
Social Work MedSurg 3 Reason for intervention: Emotional support and discharge planning Met with patient several times throughout the the day to discuss discharge planning. Spoke with [facility] to determine the Medicare days patient use during recent SNF admission, as well as to find out the exact discharge date as patient was not clear on this though felt this was in the last 30 days. Per discussion with Ethel at [facility]: Patient was admitted at [facility] from 11/12/2022 to 01/12/2023. Ethel reports patient has great support from cousin Wilma. Patient has been following with Dr. Jose Melendrez for palliative medicine. This provider is also connected with [facility]. Patient has also been involved with [facility]. Ethel reports her still care does except pending Medicaid. Private pay rate is either $253.94 or $249, depending on the type of room. Received phone call from patient's cousin Wilma Chaudhry ([phone]). Wilma reports care and concern for patient. Wilma reports after discussion with patient today, that Wilma believes patient may be ready to go to hospice care. Has expressed Wilma that does not want to do any more cancer treatment. I did update Wilma, due to Wilma being such a strong support in the patient's power of grouter helper for healthcare being in [place] right now, to the status of the discharge planning. [place] today that patient is observation status. As patient is out of her 30-day window is no longer eligible to tap into n to the longterm benefits through Medicare. Met with patient and updated patient on status of referrals to area nursing facilities, fact patient is observation status. [facility]-declined on the basis of needing radiation [facility]-waiting on response Much discussion with patient about goals of care and desires for the future. Patient clearly stated to this travel writer that after radiation treatment on 02/23/2023, patient believes she is done and no longer wants to do radiation. Patient reports she is tired and has been going through cancer treatment for a long time now. Discussed hospice, which patient acknowledged is something she is considering. Explored patient going to the nursing facility private pay/pending Medicaid and still doing therapy with palliative care involved or transitioning to hospice at the nursing facility. Patient vacillated [id number], and had many thoughts about what if therapy could help her get better. This travel writer explained that patient could go and remain on palliative, and if not feeling better or seeing significant improvement can always switch to hospice at a later time. Patient reports this information provides patient some relief to know she can always change her mind. Explored the status of the referrals and what will happen if unable to get patient into one of the nursing facilities listed above. Explored whether patient would want to be in [place] or [place], which patient does not. Let patient know then the other option would be to look at [facility]. Patient reports she will consider this. This travel writer also agreed to reach back out to [facility] and let Him know that radiation is going to be done and to see if would reconsider. Patient expressed thanks. Patient crying and tearful intermittently throughout conversation. Expression of emotion was appropriate to content being discussed and as patient processed her chronic illnesses and where she is at continuation of treatment. Much emotional support, encouragement and supportive counseling provided to patient this date. This travel writer sent a message through care report to [facility] and ask for reconsideration based on the fact that patient will be done with radiation as of 02/23/2023. But kinks and no patient is observation would have to come private pay for a short time and then pending Medicaid. Noted in care report that [facility] did respond back and there are no beds available. Plan: New to pursue finding placement for this patient with varying factors impacting final disposition. -ANDREINA Rutherford, MESS COOK *This note was generated with [employer] dictation software. It may contain incorrect words, spelling, and punctuation that were not noted in review of the chart prior to signing*
[2023-02-22 20:00] VITALS: BP 142/57; PULSE 64; RESP 16; TEMP 36.4; O2SAT 99
[2023-02-22] MEDS: Mirtazapine 15 MG Tablet PO (23:07)
[2023-02-22 23:08] VITALS: BP 143/69; PULSE 60; RESP 16; TEMP 36.6; O2SAT 97
[2023-02-23 05:00] VITALS: BP 124/68; PULSE 62; RESP 16; TEMP 36.6; O2SAT 98
[2023-02-23] MEDS: Acetaminophen 500 MG Tablet 1000 MG PO ×3 (05:27→21:46)
[2023-02-23] MEDS: Levothyroxine 125 MCG Tablet PO (05:28)
[2023-02-23 07:51] LABS: Absolute Lymphocyte Count 1.12 X10^3/uL (0.83-4.51); Absolute Neutrophil Count 4.9 X10^3/uL (2.0-7.7); Basophil# 0.02 X10^3/uL; Basophil% 0.3 % (0-1); Hemoglobin 10.4 g/dL (12.0-15.0); Lymphocyte # 1.12 X10^3/ul (0.83-4.51); Lymphocyte % 16.7 % (19-41); Mean Corp Hgb Conc 31.5 g/dL (32-36); Mean Corpuscular Hgb 27.9 pg (27.0-32.0); Mean Corpuscular Volume 88.5 fL (81-99); Mean Platelet Vol. 12.6 fl (6.2-12.0); Monocyte# 0.63 X10^3/uL; Monocyte% 9.4 % (0-10); NRBC Flagged by Analyzer 0 % (0-5); Neutrophil # 4.91 X10^3/uL (2.7-7.7); Neutrophil % 73.3 % (47-70); Platelet Count 110 K/mm3 (150-450); RBC Distribution Width CV 14.6 % (11.6-14.6); RBC Distribution Width SD 46.4 fl (35.1-43.9); Red Blood Count 3.73 M/mm3 (4.2-5.4); White Blood Count 6.7 K/mm3 (4.4-11.0)
[2023-02-23 07:55] VITALS: PULSE 80
[2023-02-23 08:19] LABS: Anion Gap 6 (5-15); BUN 16 mg/dL (7-18); BUN/Creat Ratio 23.5 RATIO (10-20); Calcium,Total 8.6 mg/dL (8.5-10.1); Chloride 113 mmol/L (98-107); Creatinine, Serum 0.68 mg/dL (0.55-1.02); EST Glomerular Filtration Rate 91 mL/min (>60); Est Glom Filt Rate - Afr Amer 110 mL/min (>60); Estimated Creatinine Clearance 45.85 ml/min; Glucose 102 mg/dL (74-106); Potassium 3.5 mmol/L (3.5-5.1); Sodium Level 144 mmol/L (136-145)
[2023-02-23 10:40] VITALS: BP 128/59; PULSE 65; RESP 18; TEMP 36.5; O2SAT 98
[2023-02-23] MEDS: Enoxaparin 40 MG/0.4 ML Syringe SC (10:42)
[2023-02-23] MEDS: Aspirin E.C. 81 MG Tablet PO (10:43)
[2023-02-23] MEDS: Atorvastatin Calcium 20 MG Tablet PO (10:43)
[2023-02-23] MEDS: levETIRAcetam 500 MG Tablet PO ×2 (10:43→21:46)
[2023-02-23] MEDS: amLODIPine 10 MG Tablet PO (10:43)
[2023-02-23] MEDS: Lisinopril 40 MG Tablet PO (10:43)
--- NOTE | 2023-02-23 11:03 | CASEMGMT ---
Discharge Planning Referral sent to [facility] via [facility]. Cecy Prescott, Discharge Planning Asst.
[2023-02-23] MEDS: Menthol/Lanolin/Calamine/Znox 113 GM Tube 1 APPLIC TOPICAL ×2 (11:28→21:46)
--- NOTE | 2023-02-23 13:23 | PN_ITS ---
Subjective Subjective Patient seen and examined. She has no complaints. She had radiation today. Review of systems is otherwise negative. She has remained hemodynamically stable. Objective Data Objective Data Vital Signs: Vital Signs Temp Pulse Resp BP Pulse Ox O2 Del Method 97.7 F L 65 18 128/59 H 98 Room Air 02/23/23 10:40 02/23/23 10:40 02/23/23 10:40 02/23/23 10:40 02/23/23 10:40 02/23/23 10:40 Oxygen Delivery Method Room Air Weight: 181 lb 11.209 oz Body Mass Index (BMI) 31.1 Intake & Output: Intake and Output for Last 24 Hours 02/21/23 02/22/23 02/23/23 23:59 23:59 23:59 Intake Total 60 / 160 1997.33 / Output Total 950 / 950 875 / 1325 850 / 850 Balance -890 / -790 1123.33 / 673.33 -850 / -850 Lab / Micro Data 02/23/23 07:26 02/23/23 07:26 Labs: Laboratory Results - last 24 hr 02/23/23 07:26: WBC 6.7, RBC 3.73 L, Hgb 10.4 L, Hct 33.0 L, MCV 88.5, MCH 27.9, MCHC 31.5 L, RDW Std Deviation 46.4 H, RDW Coeff of Tre 14.6, Plt Count 110 L, MPV 12.6 H, Immature Gran % (Auto) 0.300, Neut % (Auto) 73.3 H, Lymph % (Auto) 16.7 L, [place] % (Auto) 9.4, Eos % (Auto) 0.0, Baso % (Auto) 0.3, Absolute Neuts (auto) 4.9, Absolute Lymphs (auto) 1.12, Nucleated RBC % 0, Sodium 144, Potassium 3.5, Chloride 113 H, Carbon Dioxide 25.0, Anion Gap 6, BUN 16, Creatinine 0.68, Estim Creat Clear Calc 45.85, Est GFR (MDRD) Af Amer 110, Est GFR (MDRD) Non-Af 91, BUN/Creatinine Ratio 23.5 H, Glucose 102, Calcium 8.6 Rhythm Strip Rhythm Strip: Sinus Rhythm Rate: 85 Ectopy: None Physical Exam Const alert, oriented x3 and no apparent distress General Appearance: cooperative and comfortable HEENT normocephalic, head/scalp atraumatic, hearing grossly normal bilaterally, nasal mucous membranes and turbinates normal and moist oral mucous membranes Eyes PERRL, EOMs intact bilaterally and conjunctivae normal Neck full ROM, no lymphadenopathy and supple Lymph Lymphatic: no lymphadenopathy noted and no lymphedema noted Chest inspection of chest normal Resp normal respiratory effort, normal air movement, no retractions, no use of accessory muscles and clear to auscultation bilaterally Cardio regular rate, regular rhythm, S1 normal heart sound, S2 normal heart sound, no murmurs and peripheral pulses 2+ throughout GI normal to inspection, nondistended, normoactive bowel sounds, soft to palpation, non-tender and non-distended Back/Spine normal ROM Extremity normal to inspection, full ROM, normal capillary refill, no clubbing, cyanosis or edema, no calf tenderness and no pedal edema Skin no rashes or lesions noted General Skin Exam: no breakdown Neuro CN's II-XII intact bilaterally, moves all extremities, no focal motor deficits, no sensory deficits noted and deep tendon reflexes 2+ bilaterally Sensorium / Orientation: awake and alert Motor Exam: strength 5/5 throughout Psych mental status grossly normal, thought process normal, cooperative and affect normal Appearance: appropriate Assessment & Plan Assessment/Plan (1) Acute dehydration: (2) SULAIMAN (acute kidney injury): (3) Debility: (4) Acute encephalopathy: PLAN: Plan #Acute encephalopathy: resolved. Was thought to be due to opiates. 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 For precautions. Awaiting placement. 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 * Status post subtotal resection in 2019. Family did not want neuro surgery involvement. * On Keppra. * Undergoing radiation. * Had radiation yesterday; for radiation today. #Hypernatremia: Resolved with administration of D5 water. Sodium is 142. #Hypokalemia: Potassium is 3.1. Replace and trend. 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 * Originally diagnosed in 2009 and had thyroidectomy followed by radioiodine treatment. * Undergoing radiation. For radiation today. 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 Lisinopril on hold. Will resume lisinopril as SULAIMAN has resolved DVT prophylaxis; lovenox Disposition; awaiting placement
[2023-02-23 14:45] VITALS: BP 126/62; PULSE 61; RESP 18; TEMP 36.5; O2SAT 97
[2023-02-23 14:46] VITALS: PULSE 60
--- NOTE | 2023-02-23 18:00 | CASEMGMT ---
Social Work Medr 3 Reason for intervention: Discharge planning and emotional support to patient This policy writer met with patient and patient's cousin Wilma after patient finished radiation treatment. This policy writer updated that oncologist suggested that patient take a 2 to 3-month hiatus of any type of cancer treatment, go to the nursing facility to attempt strengthening and reconsider. The impression that patient took away is that patient might not yet be ready for hospice. Reviewed s of referrals to [facility] and [facility]. Began to update about referral to [facility] when a product support representative from [facility], Phuong Anthony, walked into the room. [facility] decided to do a [id number] with patient to help assess for admission. This policy writer provided update to Phuong. Phuong explained to this policy writer, patient and Wilma that pending Medicaid status is a complicating factor for acceptance. Phuong agreed to talk with necessary personnel in [place], to see if patient could be accepted on pending Medicaid. Much discussion ensued regarding patient's observation status, what this means for payment at the nursing facility, and patient's options for nursing facility. When Phuong stepped out of the room, this policy writer did address with patient that [facility] would be another option in [place]. Patient gave this policy writer verbal permission to send a referral over to [facility]. Patient also agreed to complete Medicaid application. Patient does report to have a small amount of money in savings which would get patient about 1 month worth of care at the nursing facility. Spoke with Eryn at [facility] first source who agrees to come up and help patient with a Medicaid application. Morning we will get this policy writer a pending case number when submitted. This policy writer was approached by Phuong prior to Phuong leaving the hospital. Phuong was able to provide an observation rate of $250 a day for 2 weeks and then $285 a day there after. Patient would have to pay for a month upfront, which is beyond what patient does have in liquid assets. Phuong reports that if patient goes to a different facility, once patient's brother is back from [place] and the finances can be sorted out further patient could do a nursing facility to nursing facility transfer. Collaborated with discharge planning division superintendent Cecy, for referral to [facility]. This policy writer did receive notice later in the day that [facility] is willing to accept but that patient would need to pay upon admission. Spoke with Eryn and for source and patient's pending case number for Medicaid is: #[id number]. This policy writer then received a phone call later in the day from patient's cousin Wilma who reports to have spoken to Dr. Jose Melendrez, the patient's palliative medicine physician. Wilma reports the physician is willing to admit patient into [facility] and a hospice bed for pain management for several days. This policy writer educated Wilma that at this point it does not appear patient is exhibiting need for symptom control for inpatient pain management. Wilma insistent that this is something the physician indicated he is able to do. This policy writer explained we will need to speak with patient to see what patient wishes to do. This policy writer met with patient to discuss the possible option about being admitted into a hospice bed at [place] for pain control. Patient clearly states that this policy writer that she is not having any type of pain and would not want to be on pain medicine unnecessarily. Patient reports desire to stay the course with the plan for nursing facility care. Patient acknowledges disappointment that cannot use Medicare benefits but reports agreement to continue working on the private pay/pending Medicaid option. Patient also agrees to [facility]. This policy writer then was asked to return back to patient's room. Patient on the phone with Wilma. Patient put Wilma on speaker phone. Patient then conveyed to this policy writer that patient trusts Dr Garcia, and would be willing to go over to [place]. Wilma expressed Dr. Garcia wanted to speak with the hospitalist. This policy writer agreed to let the hospitalist know about this but could not guarantee the hospitalist response. This policy writer was provided a cell phone number by Ethel at [facility] with Dr. Jose Melendrez's number. This policy writer called the number ([phone]) to ensure this was a good working number before giving it to the hospitalist. Dr. Garcia answered the phone and expressed thanks for this policy writer calling and I have been trying to call this policy writer. The provider actually referenced a phone number which was just 1 digit off from this policy writer's actual number so appears that the physician was trying to reach this policy writer. The physician asked for an update about what was happening with the patient. Physician walked through several options for this patient based off of current observation status. The provider reports patient could go to [facility] under about 5-day respite hospital stay and and then make determinations at that time long-term planning. Patient could go to [facility] for long-term care pending Medicaid. The provider also referenced that the patient could go through the emergency department at [facility] and the patient could be admitted into a hospice bed for several days on a STOVE INSTALLER morphine pump for pain control related to the cancer. This policy writer did a chart review and also confirmed with charge nurse that patient does not appear to be taking any pain medication and the only pain medication is as needed. This policy writer updated Dr. Garcia. Provider reports he had adjusted patient's medication in the last week or so. Provider are in agreement that based off of patient not having pain control symptoms, the option for [place] is off the table. Provider agrees to speak with Wilma about this change. Provider reports willingness to try to help this patient in any way and referenced the options for [facility]. Provider asked to be kept updated about planning in case there is anything additional that he can do on his end with palliative medicine or [facility] hospice. This policy writer thanked physician for phone call and discussion. It does not appear there needs to be a conversation between the palliative medicine provider and hospitalist as patient's status has been cleared up. This policy writer did start working on the PASRR screen, which is needed for any person being admitted to the from observation status. Due to documented diagnoses of encephalopathy, seizures, and autism in the history and physical patient is going to trip to level 2D ODD screen. This policy writer really unable to finish the PASRR screen until able to clearly verify with [facility] the understanding of patient's finances and willingness to accept private pay for short time. This policy writer did have a conversation with patient to clear up the documented diagnoses of autism and seizures. Patient states she has never been diagnosed with autism, and is uncertain where this diagnosis is come from. Has never been diagnosed with a learning disability nor was in any type of special education classes nor did she have an IEP in school. Patient reports the seizures were a 2 time event, has not been on any medication and occurred after the age of 20. Plan: Follow-up with [facility] on 02/24/2023 to ensure patient can be accepted. Continue to work on PASRR screen. Palliative care will be following patient at the nursing facility. Hospice at the nursing facility seems to be a consideration not firmed up for this patient. -ANDREINA Rutherford, CLINICAL COUNSELOR *This note was generated with [employer] dictation software. It may contain incorrect words, spelling, and punctuation that were not noted in review of the chart prior to signing*
--- NOTE | 2023-02-23 19:14 | CASEMGMT ---
Social Work Reason for intervention: follow up with patient regarding diagnoses listed in medical record. For purposes of PASRR screening process, patient does have several diagnoses listed which are DD related: Acute encephalopathy, Autism, and Seizures. Met with patient to discuss. Patient fully engaged in conversation, alert, oriented, good eye contact, appropriate and responsive affect to conversation. Autism: Patient denies ever being diagnosed with autism. Patient denies ever having any learning disability or IEP in school. Denies ever being told that she had autism or any diagnoses on the spectrum. No services through the Board of developmental disabilities. Patient reports she took some additional classes in business college after high school. 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 Seizures: Patient reports has had seizures twice in the past, very close together after patient suffered a fall. The seizures occurred after the age of 20. Patient denies being on any medication for seizure disorder. Acute encephalopathy: During conversation with this policy writer sales patient has been alert and oriented, responsive to conversation. Patient's responses are logical and appropriate to what this policy writer sales is asking. Patient able to fully engage in conversation regarding discharge planning. Patient shows appropriate emotion regarding discharge planning and the dynamics of her more chronic disease processes. -ANDREINA Rutherford, TOWNSHIP SUPERVISOR *This note was generated with [employer] dictation software. It may contain incorrect words, spelling, and punctuation that were not noted in review of the chart prior to signing*
[2023-02-23 21:35] VITALS: BP 147/61; PULSE 65; RESP 16; TEMP 36.6; O2SAT 100
[2023-02-23] MEDS: Mirtazapine 15 MG Tablet PO (21:46)
[2023-02-24] VITALS (7 sets, daily range): BP systolic 117–133; BP diastolic 54–85; PULSE 59–82; RESP 16–20; TEMP 36.7–36.9; O2SAT 96–100
[2023-02-24] MEDS: Levothyroxine 125 MCG Tablet PO (06:32)
[2023-02-24] MEDS: Acetaminophen 500 MG Tablet 1000 MG PO ×3 (06:32→21:40)
[2023-02-24 06:46] LABS: Absolute Neutrophil Count 3.3 X10^3/uL (2.0-7.7); Basophil# 0.02 X10^3/uL; Basophil% 0.4 % (0-1); Hematocrit 31.9 % (37-47); Hemoglobin 10.1 g/dL (12.0-15.0); Lymphocyte % 21.8 % (19-41); Mean Corp Hgb Conc 31.7 g/dL (32-36); Mean Corpuscular Hgb 28.2 pg (27.0-32.0); Mean Corpuscular Volume 89.1 fL (81-99); Mean Platelet Vol. 12.7 fl (6.2-12.0); Monocyte# 0.55 X10^3/uL; Monocyte% 10.9 % (0-10); NRBC Flagged by Analyzer 0 % (0-5); Neutrophil # 3.34 X10^3/uL (2.7-7.7); Neutrophil % 66.3 % (47-70); Platelet Count 114 K/mm3 (150-450); RBC Distribution Width CV 14.5 % (11.6-14.6); RBC Distribution Width SD 46.5 fl (35.1-43.9); Red Blood Count 3.58 M/mm3 (4.2-5.4)
[2023-02-24 07:12] LABS: Anion Gap 5 (5-15); BUN 18 mg/dL (7-18); BUN/Creat Ratio 24.4 RATIO (10-20); Calcium,Total 8.4 mg/dL (8.5-10.1); Chloride 111 mmol/L (98-107); Creatinine, Serum 0.74 mg/dL (0.55-1.02); EST Glomerular Filtration Rate 83 mL/min (>60); Est Glom Filt Rate - Afr Amer 100 mL/min (>60); Estimated Creatinine Clearance 45.85 ml/min; Glucose 99 mg/dL (74-106); Potassium 3.4 mmol/L (3.5-5.1); Sodium Level 142 mmol/L (136-145)
[2023-02-24] MEDS: Potassium Chloride Oral Tablet 20 MEQ 40 MEQ PO (10:03)
[2023-02-24] MEDS: Menthol/Lanolin/Calamine/Znox 113 GM Tube 1 APPLIC TOPICAL ×2 (10:03→21:37)
[2023-02-24] MEDS: Enoxaparin 40 MG/0.4 ML Syringe SC (10:04)
[2023-02-24] MEDS: levETIRAcetam 500 MG Tablet PO ×2 (10:05→21:35)
[2023-02-24] MEDS: Aspirin E.C. 81 MG Tablet PO (10:05)
[2023-02-24] MEDS: Lisinopril 40 MG Tablet PO (10:05)
[2023-02-24] MEDS: amLODIPine 10 MG Tablet PO (10:05)
[2023-02-24] MEDS: Atorvastatin Calcium 20 MG Tablet PO (10:05)
--- NOTE | 2023-02-24 12:11 | PN_ITS ---
Subjective Subjective Patient seen and examined. She had no complaints. She is done with radiation therapy. Review of systems is otherwise negative. She has remained hemodynamically stable. Objective Data Objective Data Vital Signs: Vital Signs Temp Pulse Resp BP Pulse Ox O2 Del Method 98.3 F 82 16 117/60 96 Room Air 02/24/23 10:06 02/24/23 10:06 02/24/23 10:06 02/24/23 10:06 02/24/23 10:06 02/24/23 10:06 Oxygen Delivery Method Room Air Weight: 181 lb 11.209 oz Body Mass Index (BMI) 31.1 Intake & Output: Intake and Output for Last 24 Hours 02/22/23 02/23/23 02/24/23 23:59 23:59 23:59 Intake Total 1997.33 / Output Total 875 / 1325 850 / 1250 400 / 400 Balance 1123.33 / 673.33 -850 / -1250 -400 / -400 Lab / Micro Data 02/24/23 06:27 02/24/23 06:27 Labs: Laboratory Results - last 24 hr 02/24/23 06:27: WBC 5.0, RBC 3.58 L, Hgb 10.1 L, Hct 31.9 L, MCV 89.1, MCH 28.2, MCHC 31.7 L, RDW Std Deviation 46.5 H, RDW Coeff of Tre 14.5, Plt Count 114 L, MPV 12.7 H, Immature Gran % (Auto) 0.600, Neut % (Auto) 66.3, Lymph % (Auto) 21.8, [place] % (Auto) 10.9 H, Eos % (Auto) 0.0, Baso % (Auto) 0.4, Absolute Neuts (auto) 3.3, Absolute Lymphs (auto) 1.10, Nucleated RBC % 0, Sodium 142, Potassium 3.4 L, Chloride 111 H, Carbon Dioxide 26.0, Anion Gap 5, BUN 18, Creatinine 0.74, Estim Creat Clear Calc 45.85, Est GFR (MDRD) Af Amer 100, Est GFR (MDRD) Non-Af 83, BUN/Creatinine Ratio 24.4 H, Glucose 99, Calcium 8.4 L Rhythm Strip Rhythm Strip: Sinus Rhythm Rate: 85 Ectopy: None Physical Exam Const alert, oriented x3 and no apparent distress General Appearance: cooperative and comfortable HEENT normocephalic, head/scalp atraumatic, hearing grossly normal bilaterally, nasal mucous membranes and turbinates normal and moist oral mucous membranes Eyes PERRL, EOMs intact bilaterally and conjunctivae normal Neck full ROM, no lymphadenopathy and supple Lymph Lymphatic: no lymphadenopathy noted and no lymphedema noted Chest inspection of chest normal Resp normal respiratory effort, normal air movement, no retractions, no use of accessory muscles and clear to auscultation bilaterally Cardio regular rate, regular rhythm, S1 normal heart sound, S2 normal heart sound, no murmurs and peripheral pulses 2+ throughout GI normal to inspection, nondistended, normoactive bowel sounds, soft to palpation, non-tender and non-distended Back/Spine normal ROM Extremity normal to inspection, full ROM, normal capillary refill, no clubbing, cyanosis or edema, no calf tenderness and no pedal edema Skin no rashes or lesions noted General Skin Exam: no breakdown Neuro CN's II-XII intact bilaterally, moves all extremities, no focal motor deficits, no sensory deficits noted and deep tendon reflexes 2+ bilaterally Sensorium / Orientation: awake and alert Motor Exam: strength 5/5 throughout Psych mental status grossly normal, thought process normal, cooperative and affect normal Appearance: appropriate Assessment & Plan Assessment/Plan (1) Acute dehydration: (2) SULAIMAN (acute kidney injury): (3) Debility: (4) Acute encephalopathy: PLAN: Plan #Acute encephalopathy: resolved. Was thought to be due to opiates. 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 For precautions. Awaiting placement. 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 * Status post subtotal resection in 2019. Family did not want neuro surgery involvement. * On Keppra. * Undergoing radiation. * Has had a week of radiation. #Hypernatremia: Resolved with administration of D5 water. Sodium still remains. 142. #Hypokalemia: Potassium is 3.4. Replace and trend. 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 * Originally diagnosed in 2009 and had thyroidectomy followed by radioiodine treatment. * Has undergone radiation. 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 Lisinopril on hold. Will resume lisinopril as SULAIMAN has resolved DVT prophylaxis; lovenox Disposition; awaiting placement Charges/Coding Visit Charges Inpatient E&M: 10031 Subs Hosp L2
--- NOTE | 2023-02-24 17:10 | CASEMGMT ---
Social Work MedSurg 3 Reason for intervention: Discharge planning update and support to patient This script writer received a phone call from Yoselin Hollis at [facility] ([phone]) reporting that patient was spoken to and is agreeable to a referral to hospice. [facility] is willing to do a 5-day respite stay for this patient, which would mean hospice would be covering the patient's room and board for the first 5 days before patient had to become private pay. Fax number is [phone]. This script writer met with patient to discuss patient's interest in a referral to hospice. Patient reports she did speak with her palliative physician, Dr. Jose Melendrez, last evening on the phone. Patient reports is in agreement with hospice and reports in agreement with [facility]. This script writer communicated with hospitalist who gave verbal order for this script writer to consult hospice. This script writer was also able to speak with Ethel and Libby from [facility]. Patient can be accepted and willing to accept the income patient has available, and will able to work with patient for patient to keep some monies in her checking account for personal spending. Updated that hospice plans to admit on a respite stay at time of admission. This script writer submitted PASRR screen via the [facility] system. Due to diagnoses of encephalopathy, seizures, and notation of autism in the patient's chart patient tripping the level to further review screening for the department of developmental disabilities. Due to this, patient is unable to move from the hospital until this further review comes back. This script writer did call down to the state level and left a message for Ena, talent development manager, at [phone]. Advocated for patient's screen to be prioritized and his diagnoses should be a rule out and the intention is for this patient to be admitted to hospice. Uncertain whether this phone call will make a difference in moving things along but efforts have been made to do so. Spoke with patient's cousin Wilma, who has been patient's primary caregiver and support her, updating to discharge planning status. Plan: [facility], with intent to admit to hospice for 5-day respite stay upon admission to the nursing facility. Just waiting on the level II PASRR screen to come back. -ANDREINA Rutherford, DJ INSTRUCTOR
[2023-02-24] MEDS: Mirtazapine 15 MG Tablet PO (21:35)
[2023-02-25] MEDS: Levothyroxine 125 MCG Tablet PO (05:41)
[2023-02-25] MEDS: Acetaminophen 500 MG Tablet 1000 MG PO ×3 (05:41→23:12)
[2023-02-25 05:43] VITALS: BP 123/54; PULSE 61; RESP 16; TEMP 36.5; O2SAT 98
[2023-02-25 07:38] LABS: Absolute Lymphocyte Count 1.14 X10^3/uL (0.83-4.51); Absolute Neutrophil Count 4.1 X10^3/uL (2.0-7.7); Basophil# 0.03 X10^3/uL; Basophil% 0.5 % (0-1); Eosinophil# 0.18 X10^3/uL; Hematocrit 32.9 % (37-47); Hemoglobin 10.2 g/dL (12.0-15.0); Lymphocyte # 1.14 X10^3/ul (0.83-4.51); Mean Corpuscular Volume 90.4 fL (81-99); Mean Platelet Vol. 12.4 fl (6.2-12.0); Monocyte# 0.54 X10^3/uL; NRBC Flagged by Analyzer 0 % (0-5); Neutrophil # 4.06 X10^3/uL (2.7-7.7); Neutrophil % 67.8 % (47-70); Platelet Count 116 K/mm3 (150-450); RBC Distribution Width CV 14.6 % (11.6-14.6); RBC Distribution Width SD 48.4 fl (35.1-43.9); Red Blood Count 3.64 M/mm3 (4.2-5.4)
[2023-02-25 08:02] LABS: Anion Gap 5 (5-15); BUN 22 mg/dL (7-18); BUN/Creat Ratio 33.6 RATIO (10-20); Calcium,Total 8.6 mg/dL (8.5-10.1); Chloride 114 mmol/L (98-107); Creatinine, Serum 0.65 mg/dL (0.55-1.02); EST Glomerular Filtration Rate 95 mL/min (>60); Est Glom Filt Rate - Afr Amer 115 mL/min (>60); Estimated Creatinine Clearance 45.85 ml/min; Glucose 102 mg/dL (74-106); Potassium 3.5 mmol/L (3.5-5.1); Sodium Level 144 mmol/L (136-145)
[2023-02-25] MEDS: Menthol/Lanolin/Calamine/Znox 113 GM Tube 1 APPLIC TOPICAL ×2 (08:52→23:12)
[2023-02-25] MEDS: Atorvastatin Calcium 20 MG Tablet PO (08:53)
[2023-02-25] MEDS: Lisinopril 40 MG Tablet PO (08:53)
[2023-02-25] MEDS: Aspirin E.C. 81 MG Tablet PO (08:53)
[2023-02-25] MEDS: amLODIPine 10 MG Tablet PO (08:53)
[2023-02-25] MEDS: Enoxaparin 40 MG/0.4 ML Syringe SC (08:53)
[2023-02-25] MEDS: levETIRAcetam 500 MG Tablet PO ×2 (08:53→23:12)
[2023-02-25 09:33] VITALS: BP 127/70; PULSE 72; RESP 18; TEMP 36.4; O2SAT 100
--- NOTE | 2023-02-25 11:00 | CASEMGMT ---
Social Work MedSurg 3 Faxed [facility] referral information including demographics, medication list, H&P, most recent progress note to confirmed fax, . -HANNAH Rutherford
[2023-02-25 12:37] VITALS: O2SAT 96
--- NOTE | 2023-02-25 14:33 | PN.HOSP_ITS ---
Reason for Visit Reason for Visit: Diagnoses Dehydration (02/17/23) Encephalopathy, unspecified (02/17/23) Acute kidney failure, unspecified (02/17/23) Other malaise (02/17/23) Subjective Subjective Patient denies any pain or changes in vision or swallowing, she is tearful and reports she feels fairly well and does not understand why she still in the hospital Objective Data Objective Data Vital Signs: Vital Signs Temp Pulse Resp BP Pulse Ox O2 Del Method 97.6 F L 72 18 127/70 H 96 Room Air 02/25/23 09:33 02/25/23 09:33 02/25/23 09:33 02/25/23 09:33 02/25/23 12:37 02/25/23 09:33 Oxygen Delivery Method Room Air Weight: 82.418 kg Body Mass Index (BMI) 31.1 Intake & Output: Intake and Output for Last 24 Hours 02/23/23 02/24/23 02/25/23 23:59 23:59 23:59 Intake Total 800 / 800 Output Total 850 / 1250 500 / 500 875 / 875 Balance -850 / -1250 -500 / -200 -75 / -75 Lab / Micro Data 02/25/23 06:55 02/25/23 06:55 Labs: Laboratory Results - last 24 hr 02/25/23 06:55: WBC 6.0, RBC 3.64 L, Hgb 10.2 L, Hct 32.9 L, MCV 90.4, MCH 28.0, MCHC 31.0 L, RDW Std Deviation 48.4 H, RDW Coeff of Tre 14.6, Plt Count 116 L, MPV 12.4 H, Immature Gran % (Auto) 0.700, Neut % (Auto) 67.8, Lymph % (Auto) 19.0, [place] % (Auto) 9.0, Eos % (Auto) 3.0, Baso % (Auto) 0.5, Absolute Neuts (auto) 4.1, Absolute Lymphs (auto) 1.14, Nucleated RBC % 0, Sodium 144, Potassium 3.5, Chloride 114 H, Carbon Dioxide 25.0, Anion Gap 5, BUN 22 H, Creatinine 0.65, Estim Creat Clear Calc 45.85, Est GFR (MDRD) Af Amer 115, Est GFR (MDRD) Non-Af 95, BUN/Creatinine Ratio 33.6 H, Glucose 102, Calcium 8.6 Rhythm Strip Rhythm Strip: Sinus Rhythm Rate: 85 Ectopy: None Physical Exam Narrative General: Alert, oriented, no apparent distress HEENT: Atraumatic, normocephalic Eyes: Anicteric, normal conjunctiva, extraocular movements grossly intact, pupils equal, no sustained nystagmus Neck: Supple Respiratory: Clear to auscultation bilaterally, normal respiratory effort Cardiovascular: Regular rate and rhythm GI: Soft, nontender, nondistended Extremities: No edema Musculoskeletal: Moving all extremities Neuro: No overt focal neurological deficits, finger-nose without significant difficulty, facial movement symmetrical Skin: No rashes appreciated Psych: Cooperative but tearful Assessment & Plan Assessment/Plan (1) Acute dehydration: (2) SULAIMAN (acute kidney injury): (3) Debility: (4) Acute encephalopathy: PLAN: Plan #Acute encephalopathy: resolved. Was thought to be due to opiates. 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 For precautions. Awaiting placement. 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 * Status post subtotal resection in 2019. Family did not want neuro surgery involvement. * On Keppra. * Radiated 02/10 through 02/23 with a total of 13 days. Patient to follow-up outpatient with radiation oncology #Hypernatremia: Resolved with administration of D5 water. Sodium still remains. 142. #Hypokalemia: Potassium is 3.4. Replace and trend. 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 * Originally diagnosed in 2009 and had thyroidectomy followed by radioiodine t reatment. * Has undergone radiation. #History of small bowel carcinoid tumor: s/p resection. On octreotide monthly on outpatient basis #Hypertension: on amlodipine and lisinopril DVT prophylaxis; lovenox subcu Disposition; awaiting placement Charges/Coding Visit Charges Inpatient E&M: 76477 Subs Hosp L2
[2023-02-25 15:21] VITALS: BP 121/60; PULSE 65; RESP 18; TEMP 36.3; O2SAT 99
--- NOTE | 2023-02-25 17:33 | CASEMGMT ---
Social Work SW checked HENS multiple times throughout the day. Level II review is still in referred status and review has not been completed. SW met with pt and explained Level II process and reason for delay in transfer to [facility]. Pt is frustrated but understanding. Emotional support provided. Plan: [facility], pending Level II evaluation by XOCHILT Sweeney
[2023-02-25] MEDS: Mirtazapine 15 MG Tablet PO ×2 (23:12)
[2023-02-25 23:15] VITALS: BP 133/70; PULSE 63; RESP 18; TEMP 36.6; O2SAT 98
[2023-02-26] MEDS: Levothyroxine 125 MCG Tablet PO (05:22)
[2023-02-26] MEDS: Acetaminophen 500 MG Tablet 1000 MG PO (05:23)
[2023-02-26 05:42] VITALS: BP 128/62; PULSE 59; RESP 16; TEMP 36.4; O2SAT 98
[2023-02-26 07:47] LABS: Absolute Lymphocyte Count 1.47 X10^3/uL (0.83-4.51); Absolute Neutrophil Count 3.6 X10^3/uL (2.0-7.7); Basophil# 0.03 X10^3/uL; Basophil% 0.5 % (0-1); Eosinophil# 0.16 X10^3/uL; Eosinophils% 2.7 % (0-5); Hematocrit 33.5 % (37-47); Hemoglobin 10.3 g/dL (12.0-15.0); Lymphocyte # 1.47 X10^3/ul (0.83-4.51); Lymphocyte % 25.1 % (19-41); Mean Corp Hgb Conc 30.7 g/dL (32-36); Mean Corpuscular Hgb 28.1 pg (27.0-32.0); Mean Corpuscular Volume 91.3 fL (81-99); Mean Platelet Vol. 11.9 fl (6.2-12.0); Monocyte# 0.58 X10^3/uL; Monocyte% 9.9 % (0-10); NRBC Flagged by Analyzer 0 % (0-5); Neutrophil # 3.59 X10^3/uL (2.7-7.7); Neutrophil % 61.3 % (47-70); Platelet Count 119 K/mm3 (150-450); RBC Distribution Width CV 14.7 % (11.6-14.6); Red Blood Count 3.67 M/mm3 (4.2-5.4); White Blood Count 5.9 K/mm3 (4.4-11.0)
--- NOTE | 2023-02-26 08:07 | PN.HOSP_ITS ---
Reason for Visit Reason for Visit: Diagnoses Dehydration (02/17/23) Encephalopathy, unspecified (02/17/23) Acute kidney failure, unspecified (02/17/23) Other malaise (02/17/23) Subjective Subjective Feeling the same, no acute complaints Objective Data Objective Data Vital Signs: Vital Signs Temp Pulse Resp BP Pulse Ox O2 Del Method 97.6 F L 59 L 16 128/62 H 98 Room Air 02/26/23 05:42 02/26/23 05:42 02/26/23 05:42 02/26/23 05:42 02/26/23 05:42 02/26/23 05:42 Oxygen Delivery Method Room Air Weight: 82.418 kg Body Mass Index (BMI) 31.1 Intake & Output: Intake and Output for Last 24 Hours 02/24/23 02/25/23 02/26/23 23:59 23:59 23:59 Intake Total 1150 / 1150 Output Total 500 / 500 875 / 875 400 / 400 Balance -500 / -200 275 / 275 -400 / -400 Lab / Micro Data 02/26/23 07:30 02/26/23 07:30 Labs: Laboratory Results - last 24 hr 02/26/23 07:30: WBC 5.9, RBC 3.67 L, Hgb 10.3 L, Hct 33.5 L, MCV 91.3, MCH 28.1, MCHC 30.7 L, RDW Std Deviation 49.0 H, RDW Coeff of Tre 14.7 H, Plt Count 119 L, MPV 11.9, Immature Gran % (Auto) 0.500, Neut % (Auto) 61.3, Lymph % (Auto) 25.1, [place] % (Auto) 9.9, Eos % (Auto) 2.7, Baso % (Auto) 0.5, Absolute Neuts (auto) 3.6, Absolute Lymphs (auto) 1.47, Nucleated RBC % 0 Rhythm Strip Rhythm Strip: Sinus Rhythm Rate: 85 Ectopy: None Physical Exam Narrative General: Alert, oriented, no apparent distress HEENT: Atraumatic, normocephalic Eyes: Anicteric, normal conjunctiva, extraocular movements grossly intact Neck: Supple Respiratory: normal respiratory effort Cardiovascular: no edema GI: Soft, nontender, nondistended Musculoskeletal: Moving all extremities Neuro: No overt focal neurological deficits Skin: No rashes appreciated Psych: Cooperative Assessment & Plan Assessment/Plan (1) Acute dehydration: (2) SULAIMAN (acute kidney injury): (3) Debility: (4) Acute encephalopathy: PLAN: Plan #Acute encephalopathy: resolved. Was thought to be due to opiates. 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 For precautions. Awaiting placement. 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 * Status post subtotal resection in 2019. Family did not want neuro surgery involvement. * On Keppra. * Radiated 02/10 through 02/23 with a total of 13 days. Patient to follow-up outpatient with radiation oncology #Hypernatremia: Resolved with administration of D5 water. Sodium still remains. 142. 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 * Originally diagnosed in 2009 and had thyroidectomy followed by radioiodine treatment. * Has undergone radiation. #History of small bowel carcinoid tumor: s/p resection. On octreotide monthly on outpatient basis #Hypertension: on amlodipine and lisinopril DVT prophylaxis; lovenox subcu Disposition; awaiting placement Charges/Coding Visit Charges Inpatient E&M: 27910 [facility] Hosp L1
[2023-02-26 08:19] LABS: Anion Gap 7 (5-15); BUN 22 mg/dL (7-18); BUN/Creat Ratio 29.9 RATIO (10-20); Calcium,Total 8.5 mg/dL (8.5-10.1); Chloride 111 mmol/L (98-107); Creatinine, Serum 0.74 mg/dL (0.55-1.02); EST Glomerular Filtration Rate 83 mL/min (>60); Est Glom Filt Rate - Afr Amer 100 mL/min (>60); Estimated Creatinine Clearance 45.85 ml/min; Glucose 99 mg/dL (74-106); Sodium Level 144 mmol/L (136-145)
[2023-02-26 08:24] VITALS: BP 153/60; PULSE 60; RESP 16; TEMP 36.7; O2SAT 99
--- NOTE | 2023-02-26 10:55 | NURSING ---
0930 recieved report from Olamide GUERRA
[2023-02-26] MEDS: levETIRAcetam 500 MG Tablet PO ×2 (11:19→23:04)
[2023-02-26] MEDS: Enoxaparin 40 MG/0.4 ML Syringe SC (11:19)
[2023-02-26] MEDS: Aspirin E.C. 81 MG Tablet PO (11:19)
[2023-02-26] MEDS: amLODIPine 10 MG Tablet PO (11:19)
[2023-02-26] MEDS: Atorvastatin Calcium 20 MG Tablet PO (11:19)
[2023-02-26] MEDS: Menthol/Lanolin/Calamine/Znox 113 GM Tube 1 APPLIC TOPICAL ×2 (11:20→23:04)
[2023-02-26] MEDS: Lisinopril 40 MG Tablet PO (11:20)
[2023-02-26 14:21] VITALS: BP 121/66; PULSE 66; RESP 18; TEMP 36.6; O2SAT 98
[2023-02-26 20:02] VITALS: BP 123/65; PULSE 66; RESP 18; TEMP 36.8; O2SAT 97
[2023-02-27] MEDS: Levothyroxine 125 MCG Tablet PO (05:30)
[2023-02-27 05:35] VITALS: BP 129/68; PULSE 71; RESP 16; TEMP 36.1; O2SAT 97
[2023-02-27 08:00] LABS: Absolute Lymphocyte Count 1.37 X10^3/uL (0.83-4.51); Absolute Neutrophil Count 4.9 X10^3/uL (2.0-7.7); Basophil# 0.03 X10^3/uL; Basophil% 0.4 % (0-1); Hemoglobin 10.4 g/dL (12.0-15.0); Lymphocyte # 1.37 X10^3/ul (0.83-4.51); Lymphocyte % 19.8 % (19-41); Mean Corp Hgb Conc 31.5 g/dL (32-36); Mean Corpuscular Hgb 28.6 pg (27.0-32.0); Mean Corpuscular Volume 90.7 fL (81-99); Mean Platelet Vol. 12.2 fl (6.2-12.0); Monocyte% 8.7 % (0-10); NRBC Flagged by Analyzer 0 % (0-5); Neutrophil # 4.88 X10^3/uL (2.7-7.7); Neutrophil % 70.7 % (47-70); Platelet Count 135 K/mm3 (150-450); RBC Distribution Width CV 15.1 % (11.6-14.6); RBC Distribution Width SD 49.9 fl (35.1-43.9); Red Blood Count 3.64 M/mm3 (4.2-5.4); White Blood Count 6.9 K/mm3 (4.4-11.0)
[2023-02-27 08:09] LABS: Anion Gap 6 (5-15); BUN 17 mg/dL (7-18); BUN/Creat Ratio 25.7 RATIO (10-20); Calcium,Total 8.4 mg/dL (8.5-10.1); Chloride 111 mmol/L (98-107); Creatinine, Serum 0.66 mg/dL (0.55-1.02); EST Glomerular Filtration Rate 94 mL/min (>60); Est Glom Filt Rate - Afr Amer 114 mL/min (>60); Estimated Creatinine Clearance 45.85 ml/min; Glucose 95 mg/dL (74-106); Potassium 3.7 mmol/L (3.5-5.1); Sodium Level 144 mmol/L (136-145)
--- NOTE | 2023-02-27 09:17 | PN.HOSP_ITS ---
Reason for Visit Reason for Visit: Diagnoses Dehydration (02/17/23) Encephalopathy, unspecified (02/17/23) Acute kidney failure, unspecified (02/17/23) Other malaise (02/17/23) Subjective Subjective Doing well with no new complaints Objective Data Objective Data Vital Signs: Vital Signs Temp Pulse Resp BP Pulse Ox O2 Del Method 97 F L 71 16 129/68 H 97 Room Air 02/27/23 05:35 02/27/23 05:35 02/27/23 05:35 02/27/23 05:35 02/27/23 05:35 02/27/23 05:35 Oxygen Delivery Method Room Air Weight: 82.418 kg Body Mass Index (BMI) 31.1 Intake & Output: Intake and Output for Last 24 Hours 02/25/23 02/26/23 02/27/23 23:59 23:59 23:59 Intake Total 1150 / 1150 650 / 1130 480 / 480 Output Total 875 / 875 400 / 400 400 / 400 Balance 275 / 275 250 / 730 80 / 80 Lab / Micro Data 02/27/23 06:35 02/27/23 06:35 Labs: Laboratory Results - last 24 hr 02/27/23 06:35: WBC 6.9, RBC 3.64 L, Hgb 10.4 L, Hct 33.0 L, MCV 90.7, MCH 28.6, MCHC 31.5 L, RDW Std Deviation 49.9 H, RDW Coeff of Tre 15.1 H, Plt Count 135 L, MPV 12.2 H, Immature Gran % (Auto) 0.400, Neut % (Auto) 70.7 H, Lymph % (Auto) 19.8, [place] % (Auto) 8.7, Eos % (Auto) 0.0, Baso % (Auto) 0.4, Absolute Neuts (auto) 4.9, Absolute Lymphs (auto) 1.37, Nucleated RBC % 0, Sodium 144, Potassium 3.7, Chloride 111 H, Carbon Dioxide 27.0, Anion Gap 6, BUN 17, Creatinine 0.66, Estim Creat Clear Calc 45.85, Est GFR (MDRD) Af Amer 114, Est GFR (MDRD) Non-Af 94, BUN/Creatinine Ratio 25.7 H, Glucose 95, Calcium 8.4 L Rhythm Strip Rhythm Strip: Sinus Rhythm Rate: 85 Ectopy: None Physical Exam Narrative General: Alert, oriented, no apparent distress HEENT: Atraumatic, normocephalic Eyes: Anicteric, normal conjunctiva, extraocular movements grossly intact Neck: Supple Respiratory: normal respiratory effort Cardiovascular: no edema GI: Soft, nontender, nondistended Musculoskeletal: Moving all extremities Neuro: No overt focal neurological deficits Skin: No rashes appreciated Psych: Cooperative Assessment & Plan Assessment/Plan (1) Acute dehydration: (2) SULAIMAN (acute kidney injury): (3) Debility: (4) Acute encephalopathy: PLAN: Plan #Acute encephalopathy: resolved. Was thought to be due to opiates. 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 For precautions. Awaiting placement. 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 * Status post subtotal resection in 2019. Family did not want neuro surgery involvement. * On Keppra. * Radiated 02/10 through 02/23 with a total of 13 days. Patient to follow-up outpatient with radiation oncology #Hypernatremia: Resolved with administration of D5 water. Sodium still remains. 142. 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 * Originally diagnosed in 2009 and had thyroidectomy followed by radioiodine treatment. * Has undergone radiation. #History of small bowel carcinoid tumor: s/p resection. On octreotide monthly on outpatient basis #Hypertension: on amlodipine and lisinopril DVT prophylaxis; lovenox subcu Disposition; awaiting placement Charges/Coding Visit Charges Inpatient E&M: 79410 [facility] Hosp L1
[2023-02-27 10:35] VITALS: BP 121/69; PULSE 78; RESP 16; TEMP 36.6; O2SAT 99
[2023-02-27] MEDS: Menthol/Lanolin/Calamine/Znox 113 GM Tube 1 APPLIC TOPICAL ×2 (12:42→22:37)
[2023-02-27] MEDS: Aspirin E.C. 81 MG Tablet PO (12:42)
[2023-02-27] MEDS: levETIRAcetam 500 MG Tablet PO ×2 (12:43→22:37)
[2023-02-27] MEDS: amLODIPine 10 MG Tablet PO (12:43)
[2023-02-27] MEDS: Lisinopril 40 MG Tablet PO (12:43)
[2023-02-27] MEDS: Atorvastatin Calcium 20 MG Tablet PO (12:43)
[2023-02-27 16:35] VITALS: BP 111/70; PULSE 87; RESP 16; TEMP 37.1; O2SAT 97
[2023-02-27 22:35] VITALS: BP 120/58; PULSE 70; RESP 16; TEMP 36.8; O2SAT 98
[2023-02-27] MEDS: Mirtazapine 15 MG Tablet PO (22:37)
[2023-02-28] VITALS (8 sets, daily range): BP systolic 118–145; BP diastolic 61–68; PULSE 70–80; RESP 16–18; TEMP 36.3–36.9; O2SAT 97–99
[2023-02-28] MEDS: Levothyroxine 125 MCG Tablet PO (05:27)
[2023-02-28] MEDS: amLODIPine 10 MG Tablet PO (09:59)
[2023-02-28] MEDS: Aspirin E.C. 81 MG Tablet PO (09:59)
[2023-02-28] MEDS: Lisinopril 40 MG Tablet PO (09:59)
[2023-02-28] MEDS: Atorvastatin Calcium 20 MG Tablet PO (10:00)
[2023-02-28] MEDS: levETIRAcetam 500 MG Tablet PO ×2 (10:00→22:22)
[2023-02-28] MEDS: Menthol/Lanolin/Calamine/Znox 113 GM Tube 1 APPLIC TOPICAL ×2 (10:01→22:23)
--- NOTE | 2023-02-28 11:55 | CASEMGMT ---
Social Work SW checked status of Level II Determination in HENS and continues to be in Referred Status. Email sent to Nelson Ruth at [place] [employer] who states the PASRR process can take up to 9 business days to complete. No further information was provided to this SW at this time. Plan: [facility], pending Level II Determination by XOCHILT Trotter
--- NOTE | 2023-02-28 13:24 | PN.HOSP_ITS ---
Reason for Visit Reason for Visit: Diagnoses Dehydration (02/17/23) Encephalopathy, unspecified (02/17/23) Acute kidney failure, unspecified (02/17/23) Other malaise (02/17/23) Subjective Subjective No acute complaints today Objective Data Objective Data Vital Signs: Vital Signs Temp Pulse Resp BP Pulse Ox O2 Del Method 98.5 F 78 18 121/62 H 98 Room Air 02/28/23 10:03 02/28/23 10:03 02/28/23 10:03 02/28/23 10:03 02/28/23 10:03 02/28/23 10:03 Oxygen Delivery Method Room Air Weight: 82.418 kg Body Mass Index (BMI) 31.1 Intake & Output: Intake and Output for Last 24 Hours 02/26/23 02/27/23 02/28/23 23:59 23:59 23:59 Intake Total 650 / 1130 1440 / 1440 Output Total 400 / 400 400 / 650 650 / 650 Balance 250 / 730 1040 / 790 -650 / -650 Lab / Micro Data 02/27/23 06:35 02/27/23 06:35 Rhythm Strip Rhythm Strip: Sinus Rhythm Rate: 85 Ectopy: None Physical Exam Narrative General: Alert, oriented, no apparent distress HEENT: Atraumatic, normocephalic Eyes: Anicteric, normal conjunctiva, extraocular movements grossly intact Neck: Supple Respiratory: normal respiratory effort Cardiovascular: no edema GI: Soft, nontender, nondistended Musculoskeletal: Moving all extremities Neuro: No overt focal neurological deficits Skin: No rashes appreciated Psych: Cooperative Assessment & Plan Assessment/Plan (1) Metastatic bone tumor: (2) SULAIMAN (acute kidney injury): (3) Debility: (4) Acute encephalopathy: PLAN: Plan #Acute encephalopathy: resolved. Was thought to be due to opiates. 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 For precautions. Awaiting placement. 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 * Status post subtotal resection in 2019. Family did not want neuro surgery involvement. * On Keppra. * Radiated 02/10 through 02/23 with a total of 13 days. Patient to follow-up outpatient with radiation oncology #Hypernatremia: Resolved with administration of D5 water. Sodium still remains. 142. 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 * Originally diagnosed in 2009 and had thyroidectomy followed by radioiodine treatment. * Has undergone radiation. #History of small bowel carcinoid tumor: s/p resection. On octreotide monthly on outpatient basis #Hypertension: on amlodipine and lisinopril DVT prophylaxis; lovenox subcu Disposition; awaiting placement Charges/Coding Visit Charges Inpatient E&M: 85084 [facility] Hosp L1
--- NOTE | 2023-02-28 16:09 | CASEMGMT ---
Social Work SW received message from [place] [employer] and pt has received a Rule Out for Further Review and can be admitted to [facility]. Phone call to [facility] who states they have three admissions today and can accept no more patients today. Ms. Meade can be admitted to [facility] tomorrow morning. Physician updated and to discharge tomorrow. SW met with pt and updated on above. Pt is accepting of information and agreeable to transfer to [facility] tomorrow. Pt called her cousin Nalini and informed about this and she will transport pt to [facility] tomorrow at 1000. Physician updated. XOCHILT Butterfield
[2023-02-28] MEDS: Mirtazapine 15 MG Tablet PO (22:22)
[2023-03-01 05:12] VITALS: BP 135/65; PULSE 65; RESP 14; TEMP 36.8; O2SAT 99
[2023-03-01] MEDS: Levothyroxine 125 MCG Tablet PO (05:16)
[2023-03-01] MEDS: 0.9 % NaCl (Sterile) Posiflush 10 mL IV (07:04)
[2023-03-01 08:08] VITALS: BP 148/69; PULSE 71; RESP 18; TEMP 36.6; O2SAT 98
[2023-03-01] MEDS: Lisinopril 40 MG Tablet PO (08:11)
[2023-03-01] MEDS: Menthol/Lanolin/Calamine/Znox 113 GM Tube 1 APPLIC TOPICAL (08:11)
[2023-03-01] MEDS: levETIRAcetam 500 MG Tablet PO (08:12)
[2023-03-01] MEDS: amLODIPine 10 MG Tablet PO (08:12)
[2023-03-01] MEDS: Aspirin E.C. 81 MG Tablet PO (08:12)
[2023-03-01] MEDS: Atorvastatin Calcium 20 MG Tablet PO (08:12)
--- NOTE | 2023-03-01 08:21 | PCM.DC ---
Discharge Instructions Diet Discharge Diet: No restrictions Activity Discharge Activity: Return to Normal Activity Follow Up Care Test Results: Test results from this visit will be discussed in further detail at your follow-up appointment, if applicable. Discharge Plan Admission Admit Date/Time: 02/17/23 16:05 Primary Reason for Your Visit: Confusion, resolved Attending Provider: Emilee Cooper Primary Care Provider: Christine Concepcion Consulting Providers: Juanito Amos; Rolando Healy; Arianna Coleman Instructions Patient Instructions: ED Fall Prevention Additional Instructions / Restrictions: DISCHARGE INSTRUCTIONS PLEASE READ *Please take this with you to your next doctors appointment* -Please follow-up with your oncologist on discharge -Please follow-up with radiation oncology in 1 month for routine visit. Please call their office upon discharge to schedule his follow-up appointment. -You will need to have a brain MRI in 3 months, please contact your oncologist or primary care physician to obtain order for this -Radiation oncology advised to hold your Avastin at this time -Continue other home medications -Please call your primary care provider's office upon discharge to schedule a hospital follow up within 1 week. -For any concerning signs or symptoms please call 911 or proceed to the nearest emergency department Discharge Orders/Prescriptions Prescriptions: Continued lisinopril 40 mg tablet 40 mg PO DAILY ondansetron 4 mg tablet,disintegrating 4 mg PO Q8H PRN (Reason: nausea and vomiting) Qty: 30 0RF aspirin [Adult Low Dose Aspirin] 81 mg tablet,delayed release (DR/EC) 81 mg PO DAILY atorvastatin [Lipitor] 20 mg tablet 20 mg PO DAILY mirtazapine [Remeron] 15 mg tablet 15 mg PO QHS amlodipine 10 MG tablet 10 mg PO DAILY ergocalciferol (vitamin D2) 50,000 UNIT capsule 50,000 unit PO QWEEK levetiracetam 500 MG tablet 500 mg PO BID octreotide,microspheres 20 MG kit 20 mg IM QMONTH polyethylene glycol 3350 17 gram/dose powder 17 g PO DAILY PRN (Reason: constipation) Patient Comments: TAKE 17 GRAM(S) BY MOUTH ONCE A DAY oxycodone 5 mg tablet 5 mg PO Q6H PRN (Reason: pain) 3 Days Qty: 20 0RF levothyroxine 125 mcg tablet 125 mcg PO DAILY Qty: 90 3RF Discontinued morphine 15 mg tablet extended release 15 mg PO Q12H Patient Comments: TAKE 1 TABLET BY MOUTH TWICE A DAY Referrals / Follow Up: Christine Concepcion MD [Primary Care Provider] - Within 1 Week Lynda Spencer MD [Med Staff - Active Staff] - Within 1 Week Elgin Coates DO [Med Staff - Active Staff] - Within 1 Month (Please call to schedule a follow-up appointment) Disposition Disposition (needs filled in before D/C Order can be placed): Group Home Facility
--- NOTE | 2023-03-01 08:31 | DS.PCM_ITS ---
Providers Date of Admission: 02/17/23 Date of Discharge: 03/01/23 Primary Care Physician: Dr. Christine Concepcion MD Reason For Visit: DEBILITY Diagnosis Discharge Diagnosis (1) Metastatic bone tumor: Status: Acute Code(s): C79.51 - Secondary malignant neoplasm of bone (2) SULAIMAN (acute kidney injury): Status: Acute Code(s): N17.9 - Acute kidney failure, unspecified (3) Debility: Status: Acute Code(s): R53.81 - Other malaise (4) Acute encephalopathy: Status: Acute Code(s): G93.40 - Encephalopathy, unspecified Plan #Acute encephalopathy: resolved. 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 On octreotide monthly on outpatient basis #Hypertension Medications at Discharge Home Medications amlodipine 10 mg tablet 10 mg PO DAILY 04/16/20 ergocalciferol (vitamin D2) 1,250 mcg (50,000 unit) capsule 50,000 unit PO QWEEK 04/16/20 levetiracetam 500 mg tablet 500 mg PO BID 04/16/20 octreotide,microspheres 20 mg intramuscular susp, extended release 20 mg IM Q MONTH carcinoid tumor 04/16/20 lisinopril 40 mg tablet 40 mg PO DAILY 08/13/21 ondansetron 4 mg disintegrating tablet 4 mg PO Q8H PRN nausea and vomiting #30 tabs 09/24/21 levothyroxine 125 mcg tablet 125 mcg PO DAILY #90 tabs 11/05/21 aspirin 81 mg tablet,delayed release (Adult Low Dose Aspirin) 81 mg PO DAILY 02/25/22 atorvastatin 20 mg tablet (Lipitor) 20 mg PO DAILY 02/25/22 mirtazapine 15 mg tablet (Remeron) 15 mg PO QHS 06/17/22 polyethylene glycol 3350 17 gram/dose oral powder 17 g PO DAILY PRN constipation 02/17/23 oxycodone 5 mg tablet 5 mg PO Q6H PRN pain 3 days #20 tabs 02/28/23 Hospital Course Procedures - Summary of Care Provided Minutes Spent on Discharge: 31 Hospital Course: 67-year-old female history of astrocytoma and stage IV follicular thyroid cancer status post surgery and BELLA in 2010 with hip mets and recent radiation to hip as well as 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 Med Onc advised an MRI of the brain which showed a 1.44x0.78cm mass at left periventricular white matter with no mention of vasogenic edema. Family did not want neurosurgery involvement at the time, patient continued on Keppra. She recently completed 10 doses of radiation and tolerated that well. On admission she also had SULAIMAN which resolved with IV fluids and some generalized weakness and debility requiring placement. Patient was doing very well medically and had no complaints and her encephalopathy completely resolved, she was discharged to [facility] 03/01. Discharge instructions as follows: -Please follow-up with your oncologist on discharge -Please follow-up with radiation oncology in 1 month for routine visit. Please call their office upon discharge to schedule his follow-up appointment. -You will need to have a brain MRI in 3 months, please contact your oncologist or primary care physician to obtain order for this -Radiation oncology advised to hold your Avastin at this time -Continue other home medications -Please call your primary care provider's office upon discharge to schedule a hospital follow up within 1 week. -For any concerning signs or symptoms please call 911 or proceed to the nearest emergency department Physical Exam Narrative General: Alert, oriented, no apparent distress HEENT: Atraumatic, normocephalic Eyes: Anicteric, normal conjunctiva, extraocular movements grossly intact Neck: Supple Respiratory: normal respiratory effort Cardiovascular: no edema GI: Soft, nontender, nondistended Musculoskeletal: Moving all extremities Neuro: No overt focal neurological deficits Skin: No rashes appreciated Psych: Cooperative Weight / BMI Weight Weight: 82.418 kg Body Mass Index (BMI) 31.1 ABG / Lab / Microbiology Data 02/27/23 06:35 02/27/23 06:35 D/C Instructions Discharge Diet: No restrictions Meaningful Use Info Meaningful Use Diagnoses (Choose all that apply): None applicable Discharge Plan Admission Admit Date/Time: 02/17/23 16:05 Primary Reason for Your Visit: Confusion, resolved Attending Provider: Emilee Cooper Primary Care Provider: Christine Concepcion Consulting Providers: Juanito Amos; Rolando Healy; Arianna Coleman Instructions Patient Instructions: ED Fall Prevention Additional Instructions / Restrictions: DISCHARGE INSTRUCTIONS PLEASE READ *Please take this with you to your next doctors appointment* -Please follow-up with your oncologist on discharge -Please follow-up with radiation oncology in 1 month for routine visit. Please call their office upon discharge to schedule his follow-up appointment. -You will need to have a brain MRI in 3 months, please contact your oncologist or primary care physician to obtain order for this -Radiation oncology advised to hold your Avastin at this time -Continue other home medications -Please call your primary care provider's office upon discharge to schedule a hospital follow up within 1 week. -For any concerning signs or symptoms please call 911 or proceed to the nearest emergency department Discharge Orders/Prescriptions Prescriptions: Continued lisinopril 40 mg tablet 40 mg PO DAILY ondansetron 4 mg tablet,disintegrating 4 mg PO Q8H PRN (Reason: nausea and vomiting) Qty: 30 0RF aspirin [Adult Low Dose Aspirin] 81 mg tablet,delayed release (DR/EC) 81 mg PO DAILY atorvastatin [Lipitor] 20 mg tablet 20 mg PO DAILY mirtazapine [Remeron] 15 mg tablet 15 mg PO QHS amlodipine 10 MG tablet 10 mg PO DAILY ergocalciferol (vitamin D2) 50,000 UNIT capsule 50,000 unit PO QWEEK levetiracetam 500 MG tablet 500 mg PO BID octreotide,microspheres 20 MG kit 20 mg IM QMONTH polyethylene glycol 3350 17 gram/dose powder 17 g PO DAILY PRN (Reason: constipation) Patient Comments: TAKE 17 GRAM(S) BY MOUTH ONCE A DAY oxycodone 5 mg tablet 5 mg PO Q6H PRN (Reason: pain) 3 Days Qty: 20 0RF levothyroxine 125 mcg tablet 125 mcg PO DAILY Qty: 90 3RF Discontinued morphine 15 mg tablet extended release 15 mg PO Q12H Patient Comments: TAKE 1 TABLET BY MOUTH TWICE A DAY Referrals / Follow Up: Christine Concepcion MD [Primary Care Provider] - Within 1 Week Lynda Spencer MD [Med Staff - Active Staff] - Within 1 Week Elgin Coates DO [Med Staff - Active Staff] - Within 1 Month (Please call to schedule a follow-up appointment) Disposition Disposition (needs filled in before D/C Order can be placed): [facility] Charges/Coding Visit Charges Inpatient E&M: 41176 Disch Hosp >30min
--- NOTE | 2023-03-01 10:04 | CASEMGMT ---
Social Work Pt is ready for discharge today. SHEY met with pt and confirmed dc plans. Pt cousin will be providing transportation. SHEY placed call to Yoselin at [facility] and updated on the discharge plan. [facility]'s nurse will meet pt at [facility] and open the admission at that time. Pt updated and agreeable. Disposition: [facility], intermediate level of care with hospice services [facility]
--- NOTE | 2023-03-01 10:18 | TREXTCAR_ITS ---
Diet Diet Order/Speech Therapy: 02/17/23 16:53 Diet: Regular - General Food consistency:: Regular Liquid Consistency:: Regular/Thin Diet Comments: pt prefers no milk Routine Orders/Code Status Suppository Type: Dulcolax 10mg Suppository Frequency: Daily PRN Code Status: DNRCC-A Wound(s) left buttock: Wound Type: Pressure Injury Therapies Physical Therapy: Eval and Treat Occupational Therapy: Eval and Treat Problem/Diagnosis (1) Metastatic bone tumor: Status: Acute Code(s): C79.51 - Secondary malignant neoplasm of bone (2) SULAIMAN (acute kidney injury): Status: Acute Code(s): N17.9 - Acute kidney failure, unspecified (3) Debility: Status: Acute Code(s): R53.81 - Other malaise (4) Acute encephalopathy: Status: Acute Code(s): G93.40 - Encephalopathy, unspecified Plan #Acute encephalopathy: resolved. 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 Med Onc advised an MRI of the brain which showed a 1.44x0.78cm mass at left periventricular white matter with no mention of vasogenic edema. Family did not want neurosurgery involvement at the time, patient continued on Keppra. She recently completed 10 doses of radiation and tolerated that well. On admission she also had SULAIMAN which resolved with IV fluids and some generalized weakness and debility requiring placement. Patient was doing very well medically and had no complaints and her encephalopathy comp letely resolved, she was discharged to [facility] 03/01. Discharge instructions as follows: -Please follow-up with your oncologist on discharge -Please follow-up with radiation oncology in 1 month for routine visit. Please call their office upon discharge to schedule his follow-up appointment. -You will need to have a brain MRI in 3 months, please contact your oncologist or primary care physician to obtain order for this -Radiation oncology advised to hold your Avastin at this time -Continue other home medications -Please call your primary care provider's office upon discharge to schedule a hospital follow up within 1 week. -For any concerning signs or symptoms please call 911 or proceed to the nearest emergency department Allergies/Procedures Done in Hospital Allergies No Known Allergies Allergy (Verified 02/23/23 08:36) Type of Care/Length of Stay Estimated LOS: More Than 30 Days Type of Care Needed: Intermediate Rehab Potential: Fair Prognosis: Poor Additional Orders/Day of Discharge Additional Orders: Admit to Hospice Care at admission to Nursing Facility [facility] Day of Discharge: 03/01/23 Dietary and Speech Recommendations Dietitian Recommendations/Changes: Will continue regular diet. Will d/c ensure compact TID at meals per pt request. Add ONS as needed if meal intake declines. Follow-up with weights as available. Discharge Plan Admission Admit Date/Time: 02/17/23 16:05 Primary Reason for Your Visit: Confusion, resolved Attending Provider: Emilee Cooper Primary Care Provider: Christine Concepcion Consulting Providers: Juanito Amos; Rolando Healy; Arianna Coleman Instructions Patient Instructions: ED Fall Prevention Additional Instructions / Restrictions: DISCHARGE INSTRUCTIONS PLEASE READ *Please take this with you to your next doctors appointment* -Please follow-up with your oncologist on discharge -Please follow-up with radiation oncology in 1 month for routine visit. Please call their office upon discharge to schedule his follow-up appointment. -You will need to have a brain MRI in 3 months, please contact your oncologist or primary care physician to obtain order for this -Radiation oncology advised to hold your Avastin at this time -Continue other home medications -Please call your primary care provider's office upon discharge to schedule a hospital follow up within 1 week. -For any concerning signs or symptoms please call 911 or proceed to the nearest emergency department Discharge Orders/Prescriptions Prescriptions: Continued lisinopril 40 mg tablet 40 mg PO DAILY ondansetron 4 mg tablet,disintegrating 4 mg PO Q8H PRN (Reason: nausea and vomiting) Qty: 30 0RF aspirin [Adult Low Dose Aspirin] 81 mg tablet,delayed release (DR/EC) 81 mg PO DAILY atorvastatin [Lipitor] 20 mg tablet 20 mg PO DAILY mirtazapine [Remeron] 15 mg tablet 15 mg PO QHS amlodipine 10 MG tablet 10 mg PO DAILY ergocalciferol (vitamin D2) 50,000 UNIT capsule 50,000 unit PO QWEEK levetiracetam 500 MG tablet 500 mg PO BID octreotide,microspheres 20 MG kit 20 mg IM QMONTH polyethylene glycol 3350 17 gram/dose powder 17 g PO DAILY PRN (Reason: constipation) Patient Comments: TAKE 17 GRAM(S) BY MOUTH ONCE A DAY oxycodone 5 mg tablet 5 mg PO Q6H PRN (Reason: pain) 3 Days Qty: 20 0RF levothyroxine 125 mcg tablet 125 mcg PO DAILY Qty: 90 3RF Discontinued morphine 15 mg tablet extended release 15 mg PO Q12H Patient Comments: TAKE 1 TABLET BY MOUTH TWICE A DAY Referrals / Follow Up: Christine Concepcion MD [Primary Care Provider] - Within 1 Week Lynda Spencer MD [Med Staff - Active Staff] - Within 1 Week Elgin Coates DO [Med Staff - Active Staff] - Within 1 Month (Please call to schedule a follow-up appointment) Disposition Disposition (needs filled in before D/C Order can be placed): [facility]
--- NOTE | 2023-03-01 10:24 | CASEMGMT ---
Discharge Planning Discharge orders, signed med list, and departure time sent to [facility] via [employer]. Discharge orders and departure given to Yoselin hinojosa/[facility] via phone/fax. Cecy Prescott, Discharge Planning Asst.
== END 2023-03-01 10:25 | disposition skilled nursing facility (03) ==
LOC: ED 16:04 → MS3 02-18 06:34
PROVIDERS: Hospitalist; Student in an Organized Health Care Education/Training Program; Emergency Provider Emergency Medicine; PCP Family Medicine; Visit Provider Internal Medicine
DX: C71.9 Malignant neoplasm of brain, unspecified (principal); C79.51 Secondary malignant neoplasm of bone; C78.00 Secondary malignant neoplasm of unspecified lung; N17.9 Acute kidney failure, unspecified; C73 Malignant neoplasm of thyroid gland; G92.9 Unspecified toxic encephalopathy; E87.0 Hyperosmolality and hypernatremia; E03.9 Hypothyroidism, unspecified; I10 Essential (primary) hypertension; E86.0 Dehydration; E78.5 Hyperlipidemia, unspecified; Z66 Do not resuscitate; Z92.3 Personal history of irradiation; E87.6 Hypokalemia; F84.0 Autistic disorder; Z79.899 Other long term (current) drug therapy; Z79.890 Hormone replacement therapy; Z79.82 Long term (current) use of aspirin
CPT/HCPCS: 36415; 70553; 71045; 77412; 80048; 80053; 81001; 84484; 85025; 93005; 96361; 96372; 96374; 96375; 96376; 97110; 97163; 97166; 97530; 97535; 99221; 99284; A9575; J7030; A4216; G0378; J2405